=== PATIENT | male | born 1970 | race Caucasian/White ===

== ENCOUNTER 2019-06-23 15:13 | Emergency (ER) | payer SELFPAY ==
[2019-06-23 15:15] VITALS: BP 171/112; PULSE 72; RESP 18; TEMP 36.6; O2SAT 99; BMI 42.4
--- NOTE | 2019-06-23 15:32 | CT_ITS ---
STUDY: CT ABDOMEN AND PELVIS WITHOUT CONTRAST REASON FOR EXAM: Male, 48 years old. RIGHT FLANK PAIN, HEMATURIA RADIATION DOSAGE (If Supplied By Facility): CTDIvol = ( 23.51 ) mGy, DLP = ( 1245.39 ) mGycm TECHNIQUE: Transaxial images were obtained from the dome of the diaphragm to the symphysis pubis without oral contrast, and without intravenous contrast. Sagittal and coronal images were reconstructed. Individualized dose optimization techniques were used for this CT. COMPARISON: None. FINDINGS: The visualized lung bases are unremarkable. The visualized portions of the heart are within normal limits. There is decreased attenuation of the liver consistent with steatosis. Normal gallbladder and extrahepatic biliary system. Normal spleen. Normal pancreas. Normal bilateral adrenal glands. Right obstructive uropathy due to 2.9 MM ureteral stone at the level L3-4, with mild right hydroureteronephrosis and mild right perinephric infiltration. Normal left kidney. Normal visualized stomach. Normal small intestine. Normal colon. The appendix is visualized and appears normal. Normal abdominal aorta. Normal inferior vena cava. Normal retroperitoneum. Normal urinary bladder. Normal abdominal wall. There are diffuse degenerative changes of the visualized lumbar spine. CT/Abdomen/Pelvis without Cont IMPRESSION: Right obstructive uropathy due to 2.9 MM ureteral stone at the level L3-4, with mild right hydroureteronephrosis and mild right perinephric infiltration. The appendix is normal. Diffuse fatty change of liver parenchyma. Electronically Signed: Santino Kirkland MD at 16:35 EST Tel [phone], Service support ,
--- NOTE | 2019-06-23 15:42 | ED.VISSUMM ---
- ER Visit Summary Date of Service: 06/23/19 Chief Complaint: [Flank pain] History of Present Illness: The patient is a 48 M [presents the emergency department complaint of flank pain that started approximately noon today. Pain came on rather suddenly. Patient's had nausea and vomiting with it. Patient was seen in urgent care and referred to the ER. Patient states that he is had some blood in his urine as well. He denies any fever. Patient has never had pain like this before. He has no history of kidney stones. Patient has no medical history.] Physical Examination: [HEENT-PERRLA, EOMI. Cranial nerves II through XII grossly intact. TMs clear. Mucous membranes moist. No adenopathy. Cardiovascular-regular rate and rhythm without murmur or ectopy Lungs-clear to auscultation, chest wall stable without crepitus or subcu emphysema Abdomen-normoactive bowel sounds, soft. Patient has tenderness over the right lower quadrant. Patient has CVA tenderness on the right. There is no rebound, rigidity, or perineal signs. Extremities-intact ?4, normal range of motion, normal pulses, atraumatic] Test Results: [CBC with it was significant for a white count of 14.3, hemoglobin 15, hematocrit 45, platelet 238. Chemistries unremarkable. CT scan of the flank shows a 2.9 mm stone at the right L3-4 level in the right ureter with mild hydroureter and hydronephrosis. Urinalysis is pending.] Emergency Department Course and Treatment: [Patient was medicated with Dilaudid, Toradol, and Zofran and his pain resolved] Treatment Plan: [Patient will be referred to urology for follow-up. Patient will be given urine strainers as well as a prescription for Naprosyn and [employer] and Zofran.] Disposition: [Discharged home in stable condition.] Impression: Right-sided kidney stone with colic [] This note was generated with [employer] dictation software. It may contain incorrect words, spelling, and punctuation that were not noted in review of the chart prior to signing ED Disposition - Plan for ED Patient: Referrals: Brien Maldonado MD [Primary Care Provider] -
[2019-06-23] MEDS: HYDROmorphone 1 MG/ML Syringe IV (15:50)
[2019-06-23] MEDS: 0.9% Normal Saline 1,000 ML 150 ML IV (15:50)
[2019-06-23] MEDS: Ketorolac 30 MG/ML Syringe IV (15:50)
[2019-06-23] MEDS: Ondansetron 4 MG/2 ML Vial IV (15:50)
[2019-06-23 16:09] VITALS: BP 152/81; PULSE 18; RESP 16; O2SAT 92
[2019-06-23 16:09] LABS: Absolute Lymphocyte Count 1.29 X10^3/uL (0.83-4.51); Absolute Neutrophil Count 12.2 X10^3/uL (2.0-7.7); Basophil# 0.03 X10^3/uL; Basophil% 0.2 % (0-1); Eosinophil# 0.03 X10^3/uL; Eosinophils% 0.2 % (0-5); Hematocrit 44.6 % (40-54); Hemoglobin 15.1 g/dL (13.0-16.5); Lymphocyte # 1.29 X10^3/ul (4.0); Mean Corp Hgb Conc 33.9 g/dL (32-36); Mean Corpuscular Volume 85.6 fL (80-94); Mean Platelet Vol. 9.5 fl (6.2-12.0); Monocyte# 0.72 X10^3/uL; NRBC Flagged by Analyzer 0 % (0-5); Neutrophil % 85.3 % (47-70); Platelet Count 238 K/mm3 (150-450); RBC Distribution Width CV 12.8 % (11.6-14.6); RBC Distribution Width SD 39.9 fl (35.1-43.9); Red Blood Count 5.21 M/mm3 (4.6-6.2); White Blood Count 14.3 K/mm3 (4.4-11.0)
[2019-06-23 16:21] LABS: Anion Gap 7 (5-15); BUN 18 mg/dL (7-18); BUN/Creat Ratio 14.6 RATIO (10-20); Calcium,Total 9.2 mg/dL (8.5-10.1); Chloride 108 mmol/L (98-107); Creatinine, Serum 1.23 mg/dL (0.70-1.30); EST Glomerular Filtration Rate 66 mL/min (>60); Est Glom Filt Rate - Afr Amer 80 mL/min (>60); Estimated Creatinine Clearance 70.28 ml/min; Glucose 109 mg/dL (74-106); Sodium Level 142 mmol/L (136-145)
--- NOTE | 2019-06-23 16:46 | DCINST.ED_ITS ---
ED Disposition - Plan for ED Patient: Instructions: KIDNEY STONE w/ Colic Prescriptions: Naproxen [Naprosyn] 500 mg PO BID PRN #20 tab Prescription Printed Hydrocodone Bitart/Apap 5-325 [[place] 5MG-325MG] 1 tab PO Q4H PRN PRN 2 Days #15 tab PRN Reason: Pain Prescription Printed Ondansetron [Zofran Odt] 4 mg PO Q8H PRN PRN #10 tab PRN Reason: Nausea Prescription Printed Referrals: Brien Maldonado MD [Primary Care Provider] - Carlos Fatima MD [STAFF PHYSICIAN] - 3-5 Days
[2019-06-23 16:52] LABS: Bacteria 0 SEEN /hpf (None Seen); Mucous, Urine 0 SEEN /hpf (<or=2+); Squamous Epithelial Cells - UA 0 SEEN /hpf (0-5); White Blood Cells 0 SEEN /hpf (0-5)
[2019-06-23 16:56] LABS: Color, Urine Yellow (Yellow); Glucose, Dipstick Normal (Normal); Ketone-Dipstick Negative (Negative); Leukocyte Esterase-Dipstick Negative /ul (Negative); Nitrite-Dipstick Negative (Negative); Occult Blood-Urine 250 /ul (Negative); Protein-Dipstick 15 mg/dl (Negative); Specific Gravity, Urine 1.015 (1.002-1.030); Urine Bilirubin Dipstick Negative (Negative); Urine Clarity Cloudy (Clear); Urine Urobilinogen Normal (Normal)
[2019-06-23 17:53] VITALS: BP 140/90; RESP 16
[2019-06-23 17:53] LABS: Red Blood Cells-Urine 25-50 SEEN /hpf (0-5)
== END 2019-06-23 18:06 | disposition home or self-care (01) ==
PROVIDERS: Emergency Provider Emergency Medicine; Family Provider Family Medicine; PCP Family Medicine
DX: N13.2 Hydronephrosis with renal and ureteral calculous obstruction (principal)
CPT/HCPCS: 74176; 80048; 81001; 85025; 96361; 96374; 96375; 99284; J7030; A4216; J2405

== ENCOUNTER → 2020-04-22 09:00 | Outpatient (CLI) | payer BC, SELFPAY ==
[2020-04-21 11:31] VITALS: BMI 45.8
== END ==
PROVIDERS: PCP Family Medicine; Referring Provider Physician Assistant; Visit Provider Physician Assistant
DX: Z20.828 Contact with and (suspected) exposure to other viral communicable diseases (principal)
CPT/HCPCS: 87635; C9803; U0003

== ENCOUNTER → 2020-09-24 08:17 | Outpatient (CLI) | payer OTHER, SELFPAY ==
[2020-09-23 09:29] VITALS: BMI 48.6
[2020-09-24 12:00] LABS: Absolute Neutrophil Count 6.8 X10^3/uL (2.0-7.7); Basophil# 0.04 X10^3/uL; Basophil% 0.4 % (0-1); Eosinophil# 0.17 X10^3/uL; Eosinophils% 1.8 % (0-5); Hematocrit 45.6 % (40-54); Hemoglobin 15.5 g/dL (13.0-16.5); Lymphocyte % 18.9 % (19-41); Mean Corpuscular Hgb 29.1 pg (27.0-32.0); Mean Corpuscular Volume 85.7 fL (80-94); Mean Platelet Vol. 9.7 fl (6.2-12.0); Monocyte# 0.65 X10^3/uL; Monocyte% 6.8 % (0-10); NRBC Flagged by Analyzer 0 % (0-5); Neutrophil # 6.82 X10^3/uL (2.7-7.7); Neutrophil % 71.8 % (47-70); Platelet Count 267 K/mm3 (150-450); RBC Distribution Width CV 12.6 % (11.6-14.6); RBC Distribution Width SD 39.2 fl (35.1-43.9); Red Blood Count 5.32 M/mm3 (4.6-6.2); White Blood Count 9.5 K/mm3 (4.4-11.0)
[2020-09-24 12:16] LABS: Vitamin D,25 Hydroxy 10.7 ng/mL
[2020-09-24 12:22] LABS: ALB/GLOB Ratio 1.2 RATIO (0.9-2.4); AST(SGOT) 19 U/L (15-37); Alanine Aminotransfer ALT/SGPT 44 U/L (16-61); Albumin, Serum 4.2 g/dL (3.2-5.0); Alkaline Phosphatase 121 U/L (45-117); Anion Gap 8 (5-15); BUN 17 mg/dL (7-18); Calcium,Total 9.1 mg/dL (8.5-10.1); Chloride 103 mmol/L (98-107); Cholesterol 172 mg/dL (200); Creatinine, Serum 0.94 mg/dL (0.70-1.30); EST Glomerular Filtration Rate 90 mL/min (>60); Est Glom Filt Rate - Afr Amer 108 mL/min (>60); Globulin 3.4 g/dL (2.2-4.2); Glucose 98 mg/dL (74-106); Hemoglobin A1c 5.3 % (3.8-5.6); High Density Lipoprotein 53 mg/dL; PSA,Total - Annual Screen 0.53 ng/mL (0.00-4.00); Protein, Total 7.6 g/dL (6.4-8.2); Sodium Level 139 mmol/L (136-145); Thyroid Stim Hormone (TSH) 1.12 uIU/mL (0.358-3.74); Triglycerides 117 mg/dL; Very Low Density Lipoprotein 23 mg/dL (5-40)
== END ==
PROVIDERS: PCP Internal Medicine; Referring Provider Internal Medicine; Visit Provider Internal Medicine
DX: I10 Essential (primary) hypertension (principal); E66.01 Morbid (severe) obesity due to excess calories; Z68.42 Body mass index [BMI] 45.0-49.9, adult
CPT/HCPCS: 36415; 80053; 80061; 82306; 83036; 84153; 84443; 85025; G0103

== ENCOUNTER → 2020-10-22 11:06 | Outpatient (CLI) | payer OTHER, SELFPAY ==
[2020-09-23 09:29] VITALS: BMI 48.6
== END ==
PROVIDERS: PCP Internal Medicine; Visit Provider Internal Medicine
DX: G47.30 Sleep apnea, unspecified (principal); I10 Essential (primary) hypertension; E66.01 Morbid (severe) obesity due to excess calories; Z68.42 Body mass index [BMI] 45.0-49.9, adult
CPT/HCPCS: 95806

== ENCOUNTER → 2021-06-22 14:31 | Outpatient (CLI) | payer OTHER, SELFPAY | PROVIDERS: PCP Internal Medicine; Referring Provider Physician Assistant; Visit Provider Physician Assistant | DX: Z11.52 Encounter for screening for COVID-19 (principal) | CPT/HCPCS: 87635; U0005; U0003 ==

== ENCOUNTER → 2021-12-09 | Outpatient (CLI) | payer OTHER, SELFPAY ==
--- NOTE | 2021-12-09 14:10 | CT_ITS ---
EXAM: CT MAXILLOFACIAL SINUSES WITHOUT INTRAVENOUS CONTRAST CLINICAL INDICATION: CHRONIC SINUSITIS TECHNIQUE: Helically acquired images were obtained of the maxillofacial sinuses without intravenous contrast. This CT exam was performed using one or more of the following dose reduction techniques: automated exposure control, adjustment of the mA and/or kV according to patient size, and/or use of iterative reconstruction technique. This report was created using [employer] report generation technology. RADIATION DOSE: CTDIvol = 33.06 mGy, DLP = 829.72 mGy-cm COMPARISON: None. FINDINGS: MAXILLARY SINUSES: Right maxillary sinus disease. Ostiomeatal complexes are normally formed. SPHENOID SINUSES: Clear. FRONTAL SINUSES: Clear. ETHMOID AIR CELLS: Clear. NASAL CAVITY/SEPTUM: Nasal septum is midline. Nasal turbinates are unremarkable. BONES/JOINTS: Degenerative changes of the mandibular condyles. ORBITS: Unremarkable. DENTAL: Unremarkable as visualized. No periodontal osseous erosion. CT/Sinus/Facial Bone IMPRESSION: 1. Right maxillary sinus disease. 2. Degenerative changes of the mandibular condyles. Electronically Signed: Enoc Brambila MD at 14:43 EDT ,
== END | disposition home or self-care (01) ==
LOC: CT 14:06
PROVIDERS: PCP Internal Medicine; Referring Provider Otolaryngology; Visit Provider Otolaryngology
DX: J32.8 Other chronic sinusitis (principal); J33.9 Nasal polyp, unspecified
CPT/HCPCS: 70486

== ENCOUNTER → 2023-02-07 | Outpatient (CLI) | payer MEDICAID, SELFPAY ==
[2023-02-07 12:31] LABS: Basophil# 0.02 X10^3/uL; Basophil% 0.3 % (0-1); Eosinophil# 0.22 X10^3/uL; Eosinophils% 2.9 % (0-5); Hematocrit 43.7 % (40-54); Hemoglobin 14.6 g/dL (13.0-16.5); Lymphocyte % 22.5 % (19-41); Mean Corp Hgb Conc 33.4 g/dL (32-36); Mean Corpuscular Hgb 29.1 pg (27.0-32.0); Mean Corpuscular Volume 87.2 fL (80-94); Monocyte# 0.61 X10^3/uL; Monocyte% 8.1 % (0-10); NRBC Flagged by Analyzer 0 % (0-5); Neutrophil # 4.96 X10^3/uL (2.7-7.7); Neutrophil % 65.8 % (47-70); Platelet Count 243 K/mm3 (150-450); RBC Distribution Width CV 12.6 % (11.6-14.6); RBC Distribution Width SD 40.2 fl (35.1-43.9); Red Blood Count 5.01 M/mm3 (4.6-6.2); White Blood Count 7.5 K/mm3 (4.4-11.0)
[2023-02-07 12:51] LABS: Vitamin D,25 Hydroxy 14.5 ng/mL
[2023-02-07 12:54] LABS: Hemoglobin A1c 5.5 % (3.8-5.6)
[2023-02-07 13:04] LABS: ALB/GLOB Ratio 1.1 RATIO (0.9-2.4); AST(SGOT) 19 U/L (15-37); Alanine Aminotransfer ALT/SGPT 40 U/L (16-61); Albumin, Serum 3.6 g/dL (3.2-5.0); Alkaline Phosphatase 112 U/L (45-117); Anion Gap 6 (5-15); BUN 14 mg/dL (7-18); BUN/Creat Ratio 14.8 RATIO (10-20); Calcium,Total 8.9 mg/dL (8.5-10.1); Chloride 107 mmol/L (98-107); Cholesterol 152 mg/dL (200); Creatinine, Serum 0.94 mg/dL (0.70-1.30); EST Glomerular Filtration Rate 89 mL/min (>60); Est Glom Filt Rate - Afr Amer 107 mL/min (>60); Globulin 3.4 g/dL (2.2-4.2); Glucose 109 mg/dL (74-106); High Density Lipoprotein 44 mg/dL; PSA,Total- Diagnostic 0.68 ng/mL (0.0-4.0); Potassium 4.1 mmol/L (3.5-5.1); Sodium Level 139 mmol/L (136-145); Thyroid Stim Hormone (TSH) 1.06 uIU/mL (0.358-3.74); Triglycerides 102 mg/dL; Very Low Density Lipoprotein 20 mg/dL (5-40)
== END | disposition home or self-care (01) ==
LOC: BIMLAB 09:01
PROVIDERS: PCP Internal Medicine; Referring Provider Internal Medicine; Visit Provider Internal Medicine
DX: I10 Essential (primary) hypertension (principal); Z68.42 Body mass index [BMI] 45.0-49.9, adult; G47.33 Obstructive sleep apnea (adult) (pediatric); E55.9 Vitamin D deficiency, unspecified; Z12.5 Encounter for screening for malignant neoplasm of prostate
CPT/HCPCS: 36415; 80053; 80061; 82306; 83036; 84153; 84443; 85025

== ENCOUNTER → 2024-11-28 | Outpatient (CLI) | payer OTHER, SELFPAY ==
[2024-11-28 12:58] LABS: Absolute Lymphocyte Count 1.88 X10^3/uL (0.83-4.51); Absolute Neutrophil Count 5.5 X10^3/uL (2.0-7.7); Basophil# 0.03 X10^3/uL; Basophil% 0.4 % (0-1); Eosinophils% 2.4 % (0-5); Hematocrit 42.4 % (40-54); Hemoglobin 14.6 g/dL (13.0-16.5); Lymphocyte # 1.88 X10^3/ul (0.83-4.51); Lymphocyte % 22.7 % (19-41); Mean Corp Hgb Conc 34.4 g/dL (32-36); Mean Corpuscular Hgb 29.9 pg (27.0-32.0); Mean Corpuscular Volume 86.9 fL (80-94); Monocyte% 8.4 % (0-10); NRBC Flagged by Analyzer 0 % (0-5); Neutrophil # 5.46 X10^3/uL (2.7-7.7); Neutrophil % 65.7 % (47-70); Platelet Count 243 K/mm3 (150-450); RBC Distribution Width CV 13.2 % (11.6-14.6); RBC Distribution Width SD 41.7 fl (35.1-43.9); Red Blood Count 4.88 M/mm3 (4.6-6.2); White Blood Count 8.3 K/mm3 (4.4-11.0)
[2024-11-28 13:15] LABS: Hemoglobin A1c 5.6 % (<=5.6)
[2024-11-28 13:32] LABS: ALB/GLOB Ratio 1.7 RATIO (0.9-2.4); AST(SGOT) 20 U/L (<=37); Alanine Aminotransfer ALT/SGPT 27 U/L (<=46); Albumin, Serum 4.4 g/dL (3.5-5.0); Alkaline Phosphatase 111 U/L (40-129); Anion Gap 11 (5-15); BUN 17 mg/dL (4-19); Calcium,Total 9.3 mg/dL (7.6-11.0); Carbon Dioxide 23.5 mmol/L (21.0-32.0); Chloride 104 mmol/L (98-108); Cholesterol 161 mg/dL (<=200); Creatinine, Serum 0.95 mg/dL (0.70-1.20); EST Glomerular Filtration Rate 95 (>60); Globulin 2.5 g/dL (2.2-4.2); Glucose 102 mg/dL (70-99); High Density Lipoprotein 42 mg/dL; Low Density Lipoprotein Calc. 95 mg/dL; PSA,Total - Annual Screen 0.85 ng/mL (0.02-4.00); Potassium 4.2 mmol/L (3.3-5.1); Protein, Total 6.9 g/dL (5.9-8.4); Sodium Level 138 mmol/L (133-145); Total Bilirubin 0.43 mg/dL (0.00-1.30); Triglycerides 121 mg/dL; Very Low Density Lipoprotein 24 mg/dL (5-40); cholesterol:hdl ratio screen 3.82
== END | disposition home or self-care (01) ==
LOC: BIMLAB 09:08
PROVIDERS: PCP Internal Medicine; Referring Provider Internal Medicine; Visit Provider Internal Medicine
DX: Z00.00 Encounter for general adult medical examination without abnormal findings (principal); I10 Essential (primary) hypertension; G47.33 Obstructive sleep apnea (adult) (pediatric); E55.9 Vitamin D deficiency, unspecified; Z13.220 Encounter for screening for lipoid disorders; Z12.5 Encounter for screening for malignant neoplasm of prostate; R73.9 Hyperglycemia, unspecified
CPT/HCPCS: 36415; 80053; 80061; 82306; 83036; 84153; 84443; 85025; G0103

== ENCOUNTER 2025-01-13 07:59 | Day surgery (SDC) | payer OTHER, SELFPAY ==
[2025-01-13] VITALS (7 sets, daily range): BP systolic 113–171; BP diastolic 84–97; PULSE 60–71; RESP 16–18; TEMP 36.2–37; O2SAT 96–100; BMI 66.4
--- OUTSIDE RECORDS SUMMARY | 2025-01-13 08:23 | XMS RPT_ITS | CCD ---
Author Organization [facility] Care Team Providers Care Grinder [employer] Name Role Phone Myrna Kimble Unavailable UnavailDr. Shaila Benitez Primary Care Provider Dr. Shaila Mcnair Attending Provider Dr. Shaila Mcnair Referring Provider [phone] TAYE Galvan Attending Provider [phone] Unavailable Primary Care Provider Dr. Shaila Sequeira MD Primary Care Provider Dr. Shaila Mcnair MD Attending Provider Dr. Shaila Mcnair MD Referring Provider Shaila Mcnair Attending Unavailable Shaila Mcnair Primary Care Unavailable Shaila Mcnair Primary Care Unavailable Shaila Mcnair Referring Unavailable Shaila Mcnair Attending Unavailable Shaila Mcnair Primary Care Unavailable Elkin Starks Attending Unavailable Allergies Allergy Classification Reported Allergen(s) Allergy Type Date of Onset Reaction(s) Facility (3 sources) Lisinopril; Translations: [LISINOPRIL] Drug Allergy 7 Cough [facility] Work Phone: (3 sources) Seasonal allergy; Translations: [SEASONAL ALLERGIES] Allergy to substance 4 Other: See Comments [facility] (1 source) Seasonal Allergies: Uncoded; Translations: [Seasonal Allergies: Uncoded] Propensity to adverse reactions (disorder) 5 [facility] Repository Medications Current Medications Medication Drug Class(es) Dates Sig (Normalized) Sig (Original) benzonatate 100 mg oral capsule (3 sources) Non-narcotic Antitussive Start: 10-21-2021 take 200 mg by mouth three times daily Benzonatate Active 200 MG PO THREE TIMES A DAY October 21, 2021 2:23pm Start: 10-21-2021 End: 11-27-2024 take 2 capsules by mouth three times daily as needed for cough Benzonatate 100 mg capsule Discontinued 200 mg PO THREE TIMES A DAY as needed for cough October 21, 2021 12:00am November 27, 2024 10:10am cetirizine hydrochloride 10 mg oral tablet (2 sources) Histamine-1 Receptor Antagonist Start: 11-27-2024 take 1 tablet by mouth once daily as needed Cetirizine (Allergy Relief (Cetirizine)) 10 mg tablet Active 10 mg PO daily as needed November 27, 2024 12:00am Completed/Discontinued Medications Medication Drug Class(es) Dates Sig (Normalized) Sig (Original) acetaminophen 325 mg / HYDROcodone bitartrate 5 mg oral tablet (3 sources) Opioid Agonist Start: 06-23-2019 End: 06-25-2019 take 1 tablet by mouth every four hours as needed Hydrocodone-Acetami nophen Discontinued 1 TABLET PO EVERY 4 HOURS NEEDED 15 June 23, 2019 5:46pm June 25, 2019 1:08am Start: 06-23-2019 End: 06-25-2019 Hydrocodone-Acetaminophen 1 TABLET tablet Discontinued 1 {tbl} PO EVERY 4 HOURS NEEDED as needed for Pain 15 June 23, 2019 June 24, 2019 1:00am June 25, 2019 1:08am amLODIPine 10 mg oral tablet (15 sources) Dihydropyridine Calcium Channel Elinor Start: 09-23-2020 End: 11-27-2024 take 1 tablet by mouth once daily Amlodipine 10 mg tablet Discontinued 10 mg PO DAILY October 15, 2023 9:56am November 27, 2024 11:29am amoxicillin 500 mg oral capsule (2 sources) Penicillin-class Antibacterial Start: 08-12-2023 End: 08-17-2023 take 1 capsule by mouth twice daily Amoxicillin 500 mg capsule Discontinued 500 mg PO TWICE A DAY 10 August 12, 2023 1:00am August 16, 2023 1:00am August 17, 2023 1:04am amoxicillin 875 mg / clavulanate 125 mg oral tablet (5 sources) Penicillin-class Antibacterial Start: 09-13-2022 End: 10-11-2022 Amoxicillin-Pot Clavulanate 875-125 mg tablet Discontinued 1 {tbl} PO TWICE A DAY September 13, 2022 12:00am October 11, 2022 1:04pm Start: 10-21-2021 End: 10-31-2021 take 1 tablet by mouth every twelve hours Amoxicillin-Pot Clavulanate Discontinued 1 TABLET PO Q12H 20 04October 21, 2021 2:23pm October 31, 2021 12:03am Start: 10-21-2021 End: 10-31-2021 Amoxicillin-Pot Clavulanate 875-125 mg tablet Discontinued 1 {tbl} PO Q12H 20 04October 21, 2021 12:00am October 30, 2021 12:00am October 31, 2021 12:03am cholecalciferol 0.025 mg oral capsule (2 sources) Vitamin D Start: 02-07-2023 End: 11-27-2024 take 1 capsule by mouth once daily Cholecalciferol (Vitamin D3) 25 mcg (1,000 unit) capsule Discontinued 25 ug PO DAILY February 07, 2023 12:00am November 27, 2024 10:11am fluticasone propionate 0.05 mg/actuat metered dose nasal spray (3 sources) Corticosteroid Start: 02-24-2021 End: 07-25-2021 take 1 spray(s) nasal route once daily Fluticasone Propionate Discontinued 1 SPRAY INTRANASAL DAILY February 24, 2021 8:55am July 25, 2021 10:59am administer into each nostril Start: 02-24-2021 End: 07-25-2021 Fluticasone Propionate 50 mc g/actuation spray,suspension Discontinued 1 NMA INTRANASAL DAILY February 24, 2021 12:00am July 25, 2021 10:59am administer into each nostril ibuprofen 200 mg oral capsule (3 sources) Nonsteroidal Anti-inflammatory Drug Start: 09-22-2020 End: 07-25-2021 take 1 capsule by mouth every six hours as needed Ibuprofen 200 mg capsule Discontinued 200 mg PO EVERY 6 HOURS as needed September 22, 2020 12:00am July 25, 2021 10:59am losartan potassium 50 mg oral tablet (5 sources) Angiotensin 2 Receptor Elinor Start: 05-27-2018 End: 07-28-2020 take 1 tablet by mouth once daily Losartan 50 MG tablet Discontinued 50 mg PO DAILY June 23, 2019 1:00am July 28, 2020 1:15pm Comment on above: Take 1 tablet by bettina th once daily. methylPREDNISolone 4 mg oral tablet (3 sources) Corticosteroid Start: 10-11-2022 End: 11-27-2024 take 1 tablet by mouth once Methylprednisolone (Medrol (Terry)) 4 mg tablets,dose pack Discontinued 0 PO per package directions October 11, 2022 12:00am November 27, 2024 10:10am PO PER PKG DIR Start: 10-04-2020 End: 10-04-2020 Depo-Medrol (methylprednisol one acetate) 40 mg/mL suspension for injection Discontinued 40 MG INTRAARTIC ONCE 1 October 04, 2020 9:19am October 04, 2020 9:38am naproxen 500 mg oral tablet (3 sources) Nonsteroidal Anti-inflammatory Drug Start: 06-23-2019 End: 07-28-2020 take 1 tablet by mouth twice daily as needed Naproxen 500 MG tablet Discontinued 500 mg PO TWICE DAILY NEEDED June 23, 2019 1:00am July 28, 2020 1:15pm ondansetron 4 mg disintegrating oral tablet (3 sources) Serotonin-3 Receptor Antagonist Start: 06-23-2019 End: 07-28-2020 take 1 tablet by mouth every eight hours as needed for nausea Ondansetron 4 MG tablet Discontinued 4 mg PO EVERY 8 HOURS NEEDED as needed for Nausea June 23, 2019 1:00am July 28, 2020 1:15pm predniSONE 10 mg oral tablet (2 sources) Start: 08-06-2022 predniSONE (DELTASONE) 10 mg tablet Indications: URI, acute , Sinusitis, unspecified chronicity, unspecified location Take 4 tabs daily for 3 days, then 2 tabs daily for 3 days, then 1 tab daily for 3 days with food. 21 tablet 0 08/06/2022 Active Comment on above: Take 4 tabs daily fo r 3 days, then 2 tabs daily for 3 days, then 1 tab daily for 3 days with food. Problems Active Problems Problem Classification Problem Date Documented Da te Episodic/Chronic Acute bronchitis (2 sources) Acute bronchitis; Translations: [Acute bronchitis, unspecified] 09-13-2022 Episodic Essential hypertension (11 sources) Essential hypertension; Translations: [Essential (primary) hypertension] Onset: 01-19-2016 Chronic Nutritional deficiencies (5 sources) Vitamin D deficiency; Translations: [Vitamin D deficiency, unspecified] Onset: 11-27-2024 Chronic Other injuries and conditions due to external causes (1 source) Injury of knee; Translations: [Unspecified injury of left lower leg, initial encounter] Episodic Other injuries and conditions due to external causes (2 sources) Injury of left knee; Translations: [Unspecified injury of left lower leg, initial encounter] 07-25-2021 Episodic Other lower respiratory disease (4 sources) Chronic cough; Translations: [Chronic cough] Episodic Other non-traumatic joint disorders (3 sources) Pain in left knee; Translations: [Left knee pain] 07-25-2021 Episodic Other nutritional; endocrine; and metabolic disorders (7 sources) Body mass index 40+ - severely obese; Translations: [Body mass index (BMI) 45.0-49.9, adult] 11-27-2024 Chronic Other nutritional; endocrine; and metabolic disorders (1 source) Body mass index (BMI) 45.0-49.9, adult; Translations: [Body Mass Index 45.0-49.9, adult] Chronic Other nutritional; endocrine; and metabolic disorders (2 sources) Morbid obesity; Translations: [Morbid (severe) obesity due to excess calories] Onset: 01-19-2016 01-19-2016 Chronic Other nutritional; endocrine; and metabolic disorders (1 source) Body mass index (BMI) 50.0-59.9, adult; Translations: [Body mass index [BMI] 50.0-59.9, adult] Onset: 11-27-2024 Chronic Other screening for suspected conditions (not mental disorders or infectious disease) (7 sources) Patient encounter status; Translations: [Encounter for screening for malignant neoplasm of prostate] Onset: 11-27-2024 02-07-2023 Episodic Other skin disorders (6 sources) Skin lesion; Translations: [Disorder of the skin and subcutaneous tissue, unspecified] Episodic Other skin disorders (1 source) Disorder of the skin and subcutaneous tissue, unspecified; Translations: [Disorder of the skin and subcutaneous tissue, unspecified] Onset: 11-27-2024 Episodic Other upper respiratory disease (2 sources) Seasonal allergy; Translations: [Other seasonal allergic rhinitis] Onset: 05-27-2014 05-27-2014 Chronic Other upper respiratory infections (1 source) Sinusitis; Translations: [Chronic sinusitis, unspecified] Chronic Other upper respiratory infections (9 sources) Acute sinusitis; Translations: [Acute sinusitis, unspecified] Episodic Residual codes; unclassified (5 sources) Obstructive sleep apnea syndrome; Translations: [Obstructive sleep apnea (adult) (pediatric)] 11-18-2020 Chronic Residual codes; unclassified (5 sources) Sleep apnea; Translations: [Sleep apnea, unspecified] 11-25-2020 Chronic Residual codes; unclassified (2 sources) Obstructive sleep apnea (adult) (pediatric); Translations: [Obstructive sleep apnea (adult)(pediatric)] Onset: 11-27-2024 Chronic Residual codes; unclassified (2 sources) Sleep apnea, unspecified; Translations: [Unspecified sleep apnea] Onset: 11-27-2024 Chronic Spondylosis; intervertebral disc disorders; other back problems (5 sources) Cervico-occipital neuralgia; Translations: [Occipital neuralgia] Onset: 11-27-2024 11-27-2024 Episodic Superficial injury; contusion (3 sources) Contusion of knee; Translations: [Contusion of left knee, initial encounter] 07-25-2021 Episodic Unclassified (1 source) Unknown / UNK(Unknown) Onset: 07-06-2018 Unclassified (4 sources) Encounter for screening for malignant neoplasm of colon; Translations: [Z12.11 - Encounter for screening for malignant neoplasm of colon] Unclassified (2 sources) L98.9 - Disorder of the skin and subcutaneous tissue, unspecified Viral infection (3 sources) Disease caused by 2019-nCoV; Translations: [COVID-19] 07-28-2020 Episodic Past or Other Problems Problem Classification Problem Date Documented Da te Episodic/Chronic Unclassified (1 source) LEFT AND INJURY/SWELLING Onset: 07-06-2018 Unclassified (2 sources) h/o nose surgery 01-30-2022 Results Test Name Value Interpretation Reference Range Facility Absolute lymphocyte countOrd ered By: Shaila Mcnair on 11-28-2024 Lymphocytes Auto (Unsp spec) [#/Vol] 1.88 10*3/uL 0.83-4.51 [facility] [place] Absolute neutrophil countOrd ered By: Shaila Mcnair on 11-28-2024 Neutrophils (Bld) [#/Vol] 5.5 10*3/uL 2.0-7.7 [facility] Anion gap in Serum or Plasma Ordered By: Shaila Mcnair on 11-28-2024 Anion gap [Moles/Vol] 11 mmol/L 5- [facility] Automated lymphocyte count a s percentage of total leukocytesOrdered By: Shaila Mcnair on 11-28-2024 Lymphocytes/100 WBC Auto (Unsp spec) 22.7 % - [facility] BUN/creatinine ratioOrdered By: Shaila Mcnair on 11-28-2024 Urea nitrogen/Creatinine [Mass ratio] 18.0 mg/mg 10- [facility] Basophil percentageOrdered B y: Shaila Mcnair on 11-28-2024 Basophils/100 WBC (Bld) 0.4 % 0-1 [facility] Bilirubin, totalOrdered By: Shaila Mcnair on 11-28-2024 Bilirubin [Mass/Vol] 0.43 mg/dL 0.00-1.30 [facility] CBC W/Diff, Automatedon 11-01 Absolute Lymph 1.88 X10 3/uL Normal 0.83-4.51 [facility] Comment on above: Performed By: #### L [id number], [id number], L501.9985, L506.1001, L500.4050, L100.0100, L500.4100 #### [facility] Laboratory [address] [place], [address] Absolute Neut 5.5 X10 3/uL Normal 2.0-7.7 [facility] Comment on above: Performed By: #### L [id number], [id number], L501.9985, L506.1001, L500.4050, L100.0100, L500.4100 #### [facility] Laboratory [address] [place], [address] Basophils/100 WBC (Bld) 0.4 % Normal 0-1 [facility] Comment on above: Performed By: #### L [id number], [id number], L501.9985, L506.1001, L500.4050, L100.0100, L500.4100 #### [facility] Laboratory [address] [place], [address] Eosinophils/100 WBC (Bld) 2.4 % Normal 0-5 [facility] Comment on above: Performed By: #### L [id number], [id number], L501.9985, L506.1001, L500.4050, L100.0100, L500.4100 #### [facility] Laboratory [address] [place], [address] Erythrocyte distribution width (RBC) [Ratio] 13.2 % Normal 11.6-14.6 [facility] Comment on above: Performed By: #### L [id number], [id number], L501.9985, L506.1001, L500.4050, L100.0100, L500.4100 #### [facility] Laboratory [address] [place], [address] Hematocrit (Bld) [Volume fraction] 42.4 % Normal 40-54 [facility] Comment on above: Performed By: #### L [id number], [id number], L501.9985, L506.1001, L500.4050, L100.0100, L500.4100 #### [facility] Laboratory [address] [place], [address] Hemoglobin (Bld) [Mass/Vol] 14.6 g/dL Normal 13.0-16.5 [facility] Comment on above: Performed By: #### L [id number], [id number], L501.9985, L506.1001, L500.4050, L100.0100, L500.4100 #### [facility] Laboratory [address] [place], [address] IG% 0.400 Normal 0.0-0.9 [facility] Comment on above: Result Comment: IG% - Immature Granulocytes (promyelocytes, myelocytes and metamyelocytes) > 1% indicates that a LEFT SHIFT is Present. Performed By: #### L [id number], [id number], L501.9985, L506.1001, L500.4050, L100.0100, L500.4100 #### [facility] Laboratory [address] [place], [address] Lymphocytes/100 WBC (Bld) 22.7 % Normal 19-41 [facility] Comment on above: Performed By: #### L [id number], [id number], L501.9985, L506.1001, L500.4050, L100.0100, L500.4100 #### [facility] Laboratory [address] [place], [address] MCH (RBC) [Entitic mass] 29.9 pg Normal 27.0-32.0 [facility] Comment on above: Performed By: #### L [id number], [id number], L501.9985, L506.1001, L500.4050, L100.0100, L500.4100 #### [facility] Laboratory [address] [place], [address] MCHC (RBC) [Mass/Vol] 34.4 g/dL Normal 32-[address] [facility] Comment on above: Performed By: #### L [id number], [id number], L501.9985, L506.1001, L500.4050, L100.0100, L500.4100 #### [facility] Laboratory [address] [place], [address] MCV (RBC) [Entitic vol] 86.9 fL Normal 80-94 [facility] Comment on above: Performed By: #### L [id number], [id number], L501.9985, L506.1001, L500.4050, L100.0100, L500.4100 #### [facility] Laboratory [address] [place], [address] Monocytes/100 WBC (Bld) 8.4 % Normal 0-10 [facility] Comment on above: Performed By: #### L [id number], [id number], L501.9985, L506.1001, L500.4050, L100.0100, L500.4100 #### [facility] Laboratory [address] [place], [address] Neutrophils/100 WBC (Bld) 65.7 % Normal 47-70 [facility] Comment on above: Performed By: #### L [id number], [id number], L501.9985, L506.1001, L500.4050, L100.0100, L500.4100 #### [facility] Laboratory [address] [place], [address] Nucleated RBC (Bld) [#/Vol] 0 10*3/uL Normal 0-5 [facility] Comment on above: Performed By: #### L [id number], [id number], L501.9985, L506.1001, L500.4050, L100.0100, L500.4100 #### [facility] Laboratory [address] [place], [address] Platelet mean volume (Bld) [Entitic vol] 10.0 fL Normal 6.2-12.0 [facility] Comment on above: Performed By: #### L [id number], [id number], L501.9985, L506.1001, L500.4050, L100.0100, L500.4100 #### [facility] Laboratory [address] [place], [address] Platelets (Bld) [#/Vol] 243 10*3/uL Normal 150-450 [facility] Comment on above: Performed By: #### L [id number], [id number], L501.9985, L506.1001, L500.4050, L100.0100, L500.4100 #### [facility] Laboratory [address] [place], [address] RBC (Bld) [#/Vol] 4.88 10*6/uL Normal 4.6-6.2 [facility] Comment on above: Performed By: #### L [id number], [id number], L501.9985, L506.1001, L500.4050, L100.0100, L500.4100 #### [facility] Laboratory [address] [place], [address] RDW SD 41.7 fl Normal 35.1-43.9 [facility] Comment on above: Performed By: #### L [id number], [id number], L501.9985, L506.1001, L500.4050, L100.0100, L500.4100 #### [facility] Laboratory [address] [place], [address] WBC (Bld) [#/Vol] 8.3 10*3/uL Normal 4.4-11.0 [facility] Comment on above: Performed By: #### L [id number], [id number], L501.9985, L506.1001, L500.4050, L100.0100, L500.4100 #### [facility] Laboratory [address] [place], [address] Calculated very low density lipoprotein (VLDL) cholesterol measurementOrdered By: Shaila Mcnair on 11-28-2024 Calculated very low density lipoprotein (VLDL) cholesterol measurement 24 mg/dL 5-40 [facility] Carbon dioxide, total [Moles /volume] in Central venous bloodOrdered By: Shaila Mcnair on 11-28-2024 CO2 [Moles/Vol] 23.5 mmol/L 21.0-32.0 [facility] Chloride assayOrdered By: Sonam Mcnair on 11-28-2024 Chloride [Moles/Vol] 104 mmol/L 98-108 [facility] Comprehensive Metabolic Prof ilon 11-28-2024 Albumin [Mass/Vol] 4.4 g/dL Normal 3.5-5.0 [facility] Comment on above: Performed By: #### L [id number], [id number], L501.9985, L506.1001, L500.4050, L100.0100, L500.4100 #### [facility] Laboratory [address] [place], [address] Albumin/Globulin [Mass ratio] 1.7 {ratio} Normal 0.9-2.4 [facility] Comment on above: Performed By: #### L [id number], [id number], L501.9985, L506.1001, L500.4050, L100.0100, L500.4100 #### [facility] Laboratory [address] [place], [address] ALK PHOS 111 U/L Normal 40-129 [facility] Comment on above: Performed By: #### L [id number], [id number], L501.9985, L506.1001, L500.4050, L100.0100, L500.4100 #### [facility] Laboratory [address] [place], [address] ALT [Catalytic activity/Vol] 27 U/L Normal <=46 [facility] Comment on above: Performed By: #### L [id number], [id number], L501.9985, L506.1001, L500.4050, L100.0100, L500.4100 #### [facility] Laboratory [address] [place], [address] AST [Catalytic activity/Vol] 20 U/L Normal <=37 [facility] Comment on above: Performed By: #### L [id number], [id number], L501.9985, L506.1001, L500.4050, L100.0100, L500.4100 #### [facility] Laboratory [address] [place], [address] Bilirubin [Mass/Vol] 0.43 mg/dL Normal 0.00-1.30 [facility] Comment on above: Performed By: #### L [id number], [id number], L501.9985, L506.1001, L500.4050, L100.0100, L500.4100 #### [facility] [address] [place], [address] BUN/CRE 18.0 RATIO Normal 10-20 [facility] Comment on above: Performed By: #### L [id number], [id number], L501.9985, L506.1001, L500.4050, L100.0100, L500.4100 #### [facility] Laboratory [address] [place], [address] Calcium [Mass/Vol] 9.3 mg/dL Normal 7.6-11.0 [facility] Comment on above: Performed By: #### L [id number], L501.9910, L501.9985, L506.1001, L500.4050, L100.0100, L500.4100 #### [facility] Laboratory [address] [place], [address] Chloride [Moles/Vol] 104 mmol/L Normal 98-108 [facility] Comment on above: Performed By: #### L [id number], [id number], L501.9985, L506.1001, L500.4050, L100.0100, L500.4100 #### [facility] Laboratory [address] [place], [address] CO2 [Moles/Vol] 23.5 mmol/L Normal 21.0-32.0 [facility] Comment on above: Performed By: #### L [id number], [id number], L501.9985, L506.1001, L500.4050, L100.0100, L500.4100 #### [facility] Laboratory [address] [place], [address] Creatinine [Mass/Vol] 0.95 mg/dL Normal 0.70-1.[address] [facility] Comment on above: Performed By: #### L [id number], [id number], L501.9985, L506.1001, L500.4050, L100.0100, L500.4100 #### [facility] Laboratory [address] [place], [address] GAP 11 Normal 5-15 [facility] Comment on above: Performed By: #### L [id number], L501.9910, L501.9985, L506.1001, L500.4050, L100.0100, L500.4100 #### [facility] Laboratory [address] [place], [address] GFR/1.73 sq M.predicted among non-blacks MDRD (S/P/Bld) [Vol rate/Area] 95 mL/min/{1.73_m2} Normal >60 [facility] Comment on above: Result Comment: mL/m in/1.73m2 CKD-EPI Creatinine Equation (2020) Performed By: #### L [id number], L501.9910, L501.9985, L506.1001, L500.4050, L100.0100, L500.4100 #### [facility] [address] [place], [address] Globulin (S) [Mass/Vol] 2.5 g/dL Normal 2.2-4.2 [facility] Comment on above: Performed By: #### L 501.9520, L501.9910, L501.9985, L506.1001, L500.4050, L100.0100, L500.4100 #### [facility] [address] [place], [address] Glucose [Mass/Vol] 102 mg/dL High 70-99 [facility] Comment on above: Performed By: #### L 501.9520, L501.9910, L501.9985, L506.1001, L500.4050, L100.0100, L500.4100 #### [facility] [address] [place], [address] Potassium [Moles/Vol] 4.2 mmol/L Normal 3.3-5.[address] [facility] Comment on above: Performed By: #### L 501.9520, L501.9910, L501.9985, L506.1001, L500.4050, L100.0100, L500.4100 #### [facility] [address] [place], [address] Sodium [Moles/Vol] 138 mmol/L Normal 133-145 [facility] Comment on above: Performed By: #### L 501.9520, L501.9910, L501.9985, L506.1001, L500.4050, L100.0100, L500.4100 #### [facility] [address] [place], [address] T PROT 6.9 g/dL Normal 5.9-8.4 [facility] Comment on above: Performed By: #### L 501.9520, L501.9910, L501.9985, L506.1001, L500.4050, L100.0100, L500.4100 #### [facility] [address] [place], [address] Urea nitrogen [Mass/Vol] 17 mg/dL Normal 4-19 [facility] Comment on above: Performed By: #### L 501.9520, L501.9910, L501.9985, L506.1001, L500.4050, L100.0100, L500.4100 #### [facility] [address] [place], [address] Eosinophil percentageOrdered By: Shaila Mcnair on 11-28-2024 Eosinophils/100 WBC (Bld) 2.4 % 0-5 [facility] Erythrocyte distribution wid th ratioOrdered By: Shaila Mcnair on 11-28-2024 Erythrocyte distribution width (RBC) [Ratio] 13.2 % 11.6-14.6 [facility] Erythrocyte distribution wid th standard deviationOrdered By: Shaila Mcnair on 11-28-2024 Erythrocyte distribution width (RBC) [Ratio] 41.7 fl 35.1-43.9 [facility] Glomerular filtration rate ( GFR) estimation/1.73 sq m using serum, plasma, or whole bOrdered By: Shaila Mcnair on 11-28-2024 GFR/1.73 sq M.predicted among non-blacks MDRD (S/P/Bld) [Vol rate/Area] 95 mL/min/{1.73_m2} >60 [facility] Comment on above: mL/min/1.73m2 CKD-EP I Creatinine Equation (2020) Hematocrit Auto (Bld) [Volum e fraction]Ordered By: Shaila Mcnair on 11-28-2024 Hematocrit (Bld) [Volume fraction] 42.4 % 40-54 [facility] Hemoglobin A1con 11-28-2024 HbA1c (Bld) [Mass fraction] 5.6 % Normal <=5.6 [facility] Comment on above: Result Comment: Norm al < 5.7 % Prediabetic 5.7 - 6.4 % Diabetic >or= 6.5 % Please note range changes. Performed By: #### L 501.9520, L501.9910, L501.9985, L506.1001, L500.4050, L100.0100, L500.4100 #### [facility] [address] [place], [place], [id number] Hemoglobin A1c percentageOrd ered By: Shaila Mcnair on 11-28-2024 HbA1c (Bld) [Mass fraction] 5.6 % <5.7 [facility] Comment on above: Normal < 5.7 % Predi abetic 5.7 - 6.4 % Diabetic >or= 6.5 % Please note range changes. Hemoglobin measurementOrdere d By: Shaila Mcnair on 11-28-2024 Hemoglobin (Bld) [Mass/Vol] 14.6 g/dL 13.0-16.5 [facility] Immature granulocytes/100 WB C Auto (Bld)Ordered By: Shaila Mcnair on 11-28-2024 Immature granulocytes/100 WBC (Bld) 0.400 % 0.0-0.9 [facility] Comment on above: IG% - Immature Granu locytes (promyelocytes, myelocytes and metamyelocytes) > 1% indicates that a LEFT SHIFT is Present. LDL calc ser/plasOrdered By: Shaila Mcnair on 11-28-2024 Cholesterol in LDL [Mass/Vol] 95 mg/dL [facility] Comment on above: Vojnybycym=763-306 m g/dL & Higher Uehx=694 mg/dL or greater Laboratory - Chemistry and C hemistry - challengeOrdered By: Shaila Mcnair on 11-28-2024 AST [Catalytic activity/Vol] 20 U/L <38 [facility] Lipid Profileon 11-28-2024 CHOL:HDL 3.82 Normal [facility] Comment on above: Performed By: #### L 501.9520, L501.9910, L501.9985, L506.1001, L500.4050, L100.0100, L500.4100 #### [facility] [address] [place], [address] Cholesterol [Mass/Vol] 161 mg/dL Normal <=200 [facility] Comment on above: Result Comment: Chol esterol level, Desirable <200 mg/dL Borderline high cholesterol 200-239 mg/dL High cholesterol >=240 mg/dL Recommendations of the NCEP Adult Treatment Panel for the following risk-cutoff thresholds for the [place] population. Performed By: #### L 501.9520, L501.9910, L501.9985, L506.1001, L500.4050, L100.0100, L500.4100 #### [facility] [address] [place], [address] Cholesterol in HDL [Mass/Vol] 42 mg/dL Normal [facility] Comment on above: Result Comment: Em onal Cholesterol Education Program (NCEP) guidelines: <40 mg/dL: Low HDL-cholesterol (major risk factor for CHD) >= 60 mg/dL: High HDL-cholesterol (negative risk factor for CHD) HDL-cholesterol is affected by a number of factors, e.g. smoking, exercise, hormones, sex and age. Performed By: #### L 501.9520, L501.9910, L501.9985, L506.1001, L500.4050, L100.0100, L500.4100 #### [facility] [address] [place], [address] Cholesterol in LDL [Mass/Vol] 95 mg/dL Normal [facility] Comment on above: Result Comment: Bord tyxprg=121-458 mg/dL Higher Qlkf=413 mg/dL or greater Performed By: #### L 501.9520, L501.9910, L501.9985, L506.1001, L500.4050, L100.0100, L500.4100 #### [facility] [address] [place], [address] Cholesterol in VLDL [Mass/Vol] 24 mg/dL Normal 5-40 [facility] Comment on above: Performed By: #### L 501.9520, L501.9910, L501.9985, L506.1001, L500.4050, L100.0100, L500.4100 #### [facility] [address] [place], [place], [id number] Triglyceride [Mass/Vol] 121 mg/dL Normal [facility] Comment on above: Result Comment: The drugs N-Acetylcysteine and Metamizole may falsely depress this assay. Normal range: <150 mg/dL Borderline High: 150-199 mg/dL High: 200-499 mg/dL Very High: >500 mg/dL Performed By: #### L 501.9520, L501.9910, L501.9985, L506.1001, L500.4050, L100.0100, L500.4100 #### [facility] [address] [place], [place], [id number] MCV (mean corpuscular volume ) determinationOrdered By: Shaila Mcnair on 11-28-2024 MCV (RBC) [Entitic vol] 86.9 fL 80-94 [facility] Mean corpuscular hemoglobin (MCH) determinationOrdered By: Shaila Mcnair on 11-28-2024 MCH (RBC) [Entitic mass] 29.9 pg 27.0-32.0 [facility] Mean corpuscular hemoglobin concentration (MCHC) determinationOrdered By: Shaila Mcnair on 11-28-2024 MCHC (RBC) [Mass/Vol] 34.4 g/dL 32-[address] [facility] Mean platelet volume determi nationOrdered By: Shaila Mcnair on 11-28-2024 Platelet mean volume (Bld) [Entitic vol] 10.0 fL 6.2-12.0 [facility] Monocyte percentageOrdered B y: Shaila Mcnair on 11-28-2024 Monocytes/100 WBC (Bld) 8.4 % 0-10 [facility] Neutrophil percentageOrdered By: Shaila Mcnair on 11-28-2024 Neutrophils/100 WBC (Bld) 65.7 % 47-70 [facility] Nucleated red blood cell per centageOrdered By: Shaila Mcnair on 11-28-2024 Nucleated RBC/100 WBC (Bld) [Ratio] 0 % 0-5 [facility] PSA,Total - Annual Screenon 11-28-2024 PSA,TOT SCREEN 0.85 ng/mL Normal 0.02-4.00 [facility] Comment on above: Result Comment: This test was performed using the [employer] tPSA method. Measured values of a patient??sample can vary depending on the testing procedure used. PSA values determined on patient samples by different testing procedures cannot be used interchangeably. If there is a change in PSA assays while monitoring therapy, sequential testing should be performed to confirm baseline values. Performed By: #### L 501.9520, L501.9910, L501.9985, L506.1001, L500.4050, L100.0100, L500.4100 #### [facility] [address] [place], [place], [address] Platelet countOrdered By: Sonam Mcnair on 11-28-2024 Platelets (Bld) [#/Vol] 243 10*3/uL 150-450 [facility] Potassium measurement (mass/ volume)Ordered By: Shaila Mcnair on 11-28-2024 Potassium (Unsp spec) [Mass/Vol] 4.2 mmol/L 3.3-5.1 [facility] RBC Auto (Bld) [#/Vol]Ordere d By: Shaila Mcnair on 11-28-2024 RBC (Bld) [#/Vol] 4.88 10*6/uL 4.6-6.2 [facility] Screening total cholesterol/ high density lipoprotein (HDL) cholesterol ratioOrdered By: Shaila Mcnair on 11-28-2024 Cholesterol.total/Choles terol in HDL [Mass ratio] 3.82 {ratio} [facility] Serum creatinine measurement (mass/volume)Ordered By: Shaila Mcnair on 11-28-2024 Creatinine [Mass/Vol] 0.95 mg/dL 0.70-1.[address] [facility] Serum globulin measurementOr dered By: Shaila Mcnair on 11-28-2024 Globulin (S) [Mass/Vol] 2.5 g/dL 2.2-4.2 [facility] Serum glucose measurement (m ass/volume)Ordered By: Shaila Mcnair on 11-28-2024 Glucose [Mass/Vol] 102 mg/dL High 70-99 [facility] Serum or plasma alanine leal otransferase (ALT) measurementOrdered By: Shaila Mcnair on 11-28-2024 ALT [Catalytic activity/Vol] 27 U/L <47 [facility] Serum or plasma albumin ashley urement (mass/volume)Ordered By: Shaila Mcnair on 11-28-2024 Albumin [Mass/Vol] 4.4 g/dL 3.5-5.0 [facility] Serum or plasma albumin/glob ulin mass ratioOrdered By: Shaila Mcnair on 11-28-2024 Albumin/Globulin [Mass ratio] 1.7 {ratio} 0.9-2.4 [facility] Serum or plasma alkaline eliseo sphatase measurementOrdered By: Shaila Mcnair on 11-28-2024 ALP [Catalytic activity/Vol] 111 U/L 40-129 [facility] Serum or plasma calcium ashley urement (mass/volume)Ordered By: Shaila Mcnair on 11-28-2024 Calcium [Mass/Vol] 9.3 mg/dL 7.6-11.0 [facility] Serum or plasma cholesterol in HDL measurement (mass/volume)Ordered By: Shaila Mcnair on 11-28-2024 Cholesterol in HDL [Mass/Vol] 42 mg/dL >40 [facility] Comment on above: National Cholesterol Education Program (NCEP) guidelines:<40 mg/dL: Low HDL-cholesterol (major risk factor for CHD)>= 60 mg/dL: High HDL-cholesterol (negative risk factor for CHD)HDL-cholesterol is affected by a number of factors, e.g. smoking, exercise, hormones, sex and age. Serum or plasma cholesterol measurement (mass/volume)Ordered By: Shaila Mcnair on 11-28-2024 Cholesterol [Mass/Vol] 161 mg/dL <201 [facility] Comment on above: Cholesterol level, D esirable <200 mg/dLBorderline high cholesterol 200-239 mg/dLHigh cholesterol >=240 mg/dLRecommendations of the NCEP Adult Treatment Panel for the following risk-cutoff thresholds for the [place] population. Serum or plasma urea nitroge n measurement (mass/volume)Ordered By: Shaila Mcnair on 11-28-2024 Urea nitrogen [Mass/Vol] 17 mg/dL 4-19 [facility] Sodium levelOrdered By: Vita Mcnair on 11-28-2024 Sodium [Moles/Vol] 138 mmol/L 133-145 [facility] TSH DL <= 0.005 mIU/L QnOrde red By: Shaila Mcnair on 11-28-2024 TSH Qn 1.290 uIU/mL 0.300-4.200 [facility] Thyroid Stim Hormone (TSH)on 11-28-2024 TSH 1.290 uIU/mL Normal 0.300-4.200 [facility] Comment on above: Performed By: #### L 501.9520, L501.9910, L501.9985, L506.1001, L500.4050, L100.0100, L500.4100 #### [facility] [place] [address], [address] Total proteinOrdered By: Ashley Mcnair on 11-28-2024 Protein [Mass/Vol] 6.9 g/dL 5.9-8.4 [facility] Triglycerides measurementOrd ered By: Shaila Mcnair on 11-28-2024 Triglyceride [Mass/Vol] 121 mg/dL <199 [facility] Comment on above: The drugs N-Acetylcy steine and Metamizole may falsely depress this assay. Normal range: <150 mg/dLBorderline High: 150-199 mg/dLHigh: 200-499 mg/dLVery High: >500 mg/dL Vitamin D,25 Hydroxyon 11-28 Vitamin D 25-OH 11.0 ng/mL Low 30-100 [facility] Comment on above: Result Comment: Dora min D Status Deficiency: <20 ng/mL (50nmol/L) Insufficiency: 20-30 ng/mL (50-75 nmol/L) Sufficiency: 30-100 ng/mL (75-250 nmol/L) Toxicity: >100 ng/mL (>250 nmol/L) Performed By: #### L 501.9520, L501.9910, L501.9985, L506.1001, L500.4050, L100.0100, L500.4100 #### [facility] [place], [address] White blood cell (WBC) count Ordered By: Shaila Mcnair on 11-28-2024 WBC (Bld) [#/Vol] 8.3 10*3/uL 4.4-11.0 [facility] MR/BMS.Bon 11-27-2024 MR/BMS.[facility] [address] [place] [address] OFFICE VISIT Date of Service: 11/27/24 MR#: [id number] Acct: [id number] Name: ELISABETH SERNA Rep #: [id number] : 1970 Provider: Dr. Shaila way MD Age/Sex: 54/M Location: [facility] Status: Signed Intake Vital Signs 08/25/21 08:06 11/26/24 09:25 11/27/24 10:12 Height 5 ft 8 in 5 ft 8 in 5 ft 8 in Weight: 336 lb BMI 51.0 BP 147/93 H Blood Pressure Location Lt brachial Position Sitting Respiration 16 Pulse 69 Pulse Source Monitor Temp 98.6 F Temp Source Temporal Pulse Oximetry (%) 95 Oxygen Delivery Method room air Intake Visit Reasons: Annual/Physical Chief Complaint: Annual/Physical Associate Faculty Required: No Accompanied by: Self Is patient in pain?: Yes (headache) Pain scale (1-10): 1 Allergies Seasonal Allergies: Uncoded Allergy (Verified 11/27/24 09:58) NEEDS FOLLOW-UP Medications ???Medication ???Instructions ???Recorded ???Confirmed ???Type amlodipine 10 mg tablet 10 mg PO DAILY #90 tabs 11/27/24 0 11/27/24 Rx cetirizine 10 mg tablet (Allergy 10 mg PO QDAY PRN 11/27/24 5 History Relief (cetirizine)) [facility] Medical History (Updated 11/27/24 @ 11:[address] Shaila Mcnair MD) Occipital neuralgia of left side Encounter for wellness examination in adult BMI 45.0-49.9, adult BMI 50.0-59.9, adult Skin lesions Colon cancer screening Uncontrolled hypertension Acute bronchitis, unspecified Acute sinusitis, unspecified Essential hypertension h/o nose surgery Hay fever Seasonal allergies HTN (hypertension) Surgical History H/O arthroscopic knee surgery Family History Other Family history not known due to adoption Social History household members: spouse and children housing: house number of children: 2 current occupational status: employed current occupation: [employer] Smoking Status: Never smoker alcohol intake: never substance use type: does not use what type of physical activity do you participate in: walking frequency: daily do you feel safe at home: Yes HPI HPI Chief Complaint: Annual/Physical Details: ELISABETH SERNA, is a 54 M who presents to the office today for annual wellness follow-up. 54-year-old gentleman who has a history of obesity, now with a BMI over 51, weight 336 pounds. He has a history of hypertension on amlodipine 10 mg daily. He is actually been out for several days. Overall he has been doing reasonably well but he does have a number of questions we spent a considerable amount of time discussing a variety of issues. From an acute standpoint, he has been having left neck pain that travels forward to the left forehead, sometimes sharp stabbing. Hurts to chew at times. He wondered about sinus, he also notes that if he lays on the right side that makes the pain apparently worse. He has changed his pillow as he thought maybe that that was related. In the back of the neck, he points to the area near the base of the skull where he feels the source may be. Sometimes hurts a little bit in the ear but that is not consistent. No change in hearing is noted. No drainage from the ear. He has not had fever or chills. In the past he has follow-up with ENT for other issues and he has had sinus polyps in the past but that does not seem to necessarily be the issue at this point. He does occasionally have some drainage basically from the left nares but not frankly purulent. He also wanted to discuss potential for weight loss medication. He has been trying to do dietary modifications given in the past we spent considerable time discussing dietary nutritional patterns in that context. His weight has actually gone up some since his last visit which has been about 2 years ago. In any event, he is doing periodic fasting at this time. Tends to not eat from 8 PM through noon the following day. Overall trying to have a better quality in the diet as well but still clearly some processed carbohydrates, poor quality foods at times. In that context we discussed the oral medications available on the market today including phentermine, Qsymia, Contrave and also the GLP-1 agonists as well as tirzepatide, which does have the approval for weight loss in the setting of obstructive sleep apnea. He would discuss it with his spouse, look up additional information, and also discuss with his insurance company about whether medications are on their formulary. He would let us know and certainly would have any additional questions,. Last time we saw him, I did refer him to colonoscopy however that was not completed. We discussed colon (more content not included)... Normal [facility] 08-07-2022 [facility] Telephone ([facility]) ELISABETH SERNA ([id number]) 1970 M Date Time Provider Department 08/07/22 [facility] During your visit today, we recorded the following information about you: TAYE Cantor 08/07/2022 7:11 AM Signed Let patient know negative for covid and flu. Kwame Middleton 08/07/2022 7:29 AM Signed Patient given results and verbalized understanding of instructions given. Kwame Middleton Allergies As of Date: 08/07/2022 Noted Allergy Reaction LISINOPRIL 11/07/2016 3 - Cough SEASONAL ALLERGIES 07/23/2013 14 - Other: See Comments Comments: headaches Date Reviewed: 08/06/2022 Reviewed by: Connie Nogueira MA - Fully Assessed Reason for Visit: Results [95] Prescriptions as of 08/07/2022 - predniSONE (DELTASONE) 10 mg tablet Take 4 tabs daily for 3 days, then 2 tabs daily for 3 days, then 1 tab daily for 3 days with food. - losartan (COZAAR) 50 mg tablet Take 1 tablet by mouth once daily. Problem List As Of Date 08/07/2022 Noted Resolved Seasonal allergies [J30.2] 05/27/2014 Well adult exam [Z00.00] 05/27/2014 Essential hypertension [I10] 01/19/2016 Morbid obesity due to excess calories (HCC) [E6*01/19/2016 Encounter Status:Closed by KWAME MIDDLETON on 08/07/22 [facility]OVon 08-06-2022 CNOV Office Visit ([facility] ) ELISABETH SERNA ([id number]) 1970 M Date Time Provider Department 08/06/22 3:30 PM JULIANO GARCÍA [facility] During your visit today, we recorded the following information about you: Temperature Pulse Respiration Blood pressure 97.7 degrees 94/minute 20/minute 132/94 Weight 149.6 kg Juliano García APRN.CNP 08/06/2022 3:32 PM Signed This note was created using NoteWriter. Subjective Elisabeth Serna is a 51 year old male. 51 year old male with PMH HTN and obesity presents for complaints of illness. Acute onset 4 days ago + cough +sinus +headache + sneezing +post nasal drainage Denies SOB or dyspnea Denies abdominal pain Denies N/V/D Denies skin rash or lesions. 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 No beach expert was used. Sinus Problem This is a new problem. The current episode started in the past 7 days. The problem occurs constantly. Associated symptoms include chills, congestion, coughing and headaches. Pertinent negatives include no abdominal pain, anorexia, arthralgias, change in bowel habit, chest pain, diaphoresis, fatigue, fever, joint swelling, myalgias, nausea, neck pain, numbness, rash, sore throat, swollen glands, urinary symptoms, vertigo, visual change, vomiting or weakness. Nothing aggravates the symptoms. He has tried nothing for the symptoms. The treatment provided no relief. PAST MEDICAL HISTORY Diagnosis Date PMH - PAST MEDICAL HISTORY OF seasonal allergies PAST SURGICAL HISTORY Procedure Laterality Date PAST SURGICAL HISTORY OF L AND R knee, arthroscopy PAST SURGICAL HISTORY OF jaw surgery, reconstruction PAST SURGICAL HISTORY OF deviated septum PAST SURGICAL HISTORY OF vascetomy RPR 1ST INGUN HRNA AGE 4 YRS/> REDUCIBLE Hernia repair, inguinal TONSILLECTOMY PRIMARY/SECONDARY Tonsillectomy ALLERGIES Lisinopril and Seasonal Allergies MEDICATIONS losartan (COZAAR) 50 mg tablet Take 1 tablet by mouth once daily. predniSONE (DELTASONE) 10 mg tablet Take 4 tabs daily for 3 days, then 2 tabs daily for 3 days, then 1 tab daily for 3 days with food. FAMILY HISTORY Adopted: Yes Problem Relation Age of Onset other (adopted [Other]) Unknown Social History Tobacco Use Smoking status: Never Smokeless tobacco: Never Substance Use Topics Alcohol use: No Drug use: No Review of Systems Constitutional: Positive for chills. Negative for diaphoresis, fatigue and fever. HENT: Positive for congestion, postnasal drip, sinus pressure and sinus pain. Negative for sore throat. Respiratory: Positive for cough. Negative for apnea, choking and chest tightness. Cardiovascular: Negative for chest pain. Gastrointestinal: Negative for abdominal pain, anorexia, change in bowel habit, nausea and vomiting. Musculoskeletal: Negative for arthralgias, joint swelling, myalgias and neck pain. Skin: Negative for rash. Allergic/Immunologic: Negative for environmental allergies, food allergies and immunocompromised state. Neurological: Positive for headaches. Negative for dizziness, vertigo, facial asymmetry, weakness and numbness. Hematological: Negative for adenopathy. Does not bruise/bleed easily. Psychiatric/Behavioral : Negative for agitation and behavioral problems. Objective BP 132/94 Pulse 94 Temp 36.5 ?C (97.7 ?F) Resp 20 Wt (!) 149.6 kg (329 lb 12.8 oz) SpO2 98% BMI 48.00 kg/m? Physical Exam Vitals and nursing note reviewed. Constitutional: General: He is not in acute distress. Appearance: Normal appearance. He is not ill-appearing, toxic-appearing or diaphoretic. HENT: Head: Normocephalic and atraumatic. Right Ear: External ear normal. Left Ear: External ear normal. Nose: Nose normal. No congestion or rhinorrhea. Mouth/Throat: Mouth: Mucous membranes are moist. Pharynx: Oropharynx is clear. No oropharyngeal exudate or posterior oropharyngeal erythema. Eyes: General: Right eye: No discharge. Left eye: No discharge. Extraocular Movements: Extraocular movements intact. Conjunctiva/sclera: Conjunctivae normal. Pupils: Pupils are equal, round, and reactive to light. Cardiovascular: Rate and Rhythm: Normal rate and regular rhythm. Pulses: Normal pulses. Heart sounds: Normal heart sounds. No murmur heard. No friction rub. No gallop. Pulmonary: Effort: Pulmonary effort is normal. No respiratory distress. Breath sounds: Normal breath sounds. No stridor. No wheezing, rhonchi or rales. Chest: Chest wall: No tenderness. Abdominal: General: Abdomen is flat. There is no distension. Palpations: Abdomen is soft. There is no mass. Tenderness: There is no abdominal tenderness. There is no guarding or rebound. Hernia: No hernia is present. Musculoskeletal: General: No swelling, tenderness, deformity or signs of injury. No (more content not included)... Normal [facility] FLUABV + SARS-CoV-2 Pnl Resp ALL+prbon 08-06-2022 Influenza virus A and B RNA and SARS-CoV-2 (COVID-19) N gene panel ALL+probe (Resp) COVID 19 RESULT: Not detected The method used is RT-PCR or an equivalent NAAT method. Reference Range (the expected result in uninfected individuals): Not detected INFLUENZA A PCR: Not detected INFLUENZA B PCR: Not detected Normal [facility] Comment on above: Performed By: #### [id number] #### [facility] CLIA [id number] [address] [place] [address] [place] OF [place] ANKLE COMP MIN 3 VWS LTon ANKLE COMP MIN 3 VWS LT ANKLE COMP MIN 3 VWS LTOrdering Physician: Jorje Zarate MD07/06/2018 5:10 PMTHREE VIEWS OF THE LEFT ANKLE:Clinical Statement: Pain and injuryComparison: NoneFINDINGS: No acute fracture or subluxation/dislocatio n. Bonymineralization is within normal limits. Moderate sized Achilles tendonenthesophyte and a tiny plantar calcaneal spur are noted. Degenerativechange of the tibiotalar and talofibular joints are noted. An ossicleis noted immediately adjacent the left lateral malleolus, likelyrelated to prior injury.Soft tissue swelling is noted anterior to the ankle joint and alongthe lateral malleolus. No radiopaque foreign bodies.IMPRESSION:No acute findings. ---- Electronic Signature on File ----Signed By: Sylvia García [email or web address] [email or web address] ictated: 07/07/2018 1:26 AMSigned: 07/07/2018 1:29 AM Reported By: SYLVIA GARCÍA M.D. Signed By: SYLVIA GARCÍA M.D. [facility] Vital Signs Date Time Vital Sign Value Performing Clinician Lindai evany 11-27-2024 10:120400 Body height 172.[address] Shaila Mcnair MD Work Phone: [facility] 11-27-2024 10:12-0400 Body mass index (BMI) [Ratio] 51 kg/m2 Dr. Shaila Mcnair MD Work Phone: [facility] 11-27-2024 10:12-0400 Body temperature 98.6 [degF] Dr. Shaila Mcnair MD Work Phone: [facility] 11-27-2024 10:12-0400 Body weight 152.[address] Shaila Mcnair MD Work Phone: [facility] 11-27-2024 10:12-0400 Diastolic blood pressure 93 mm[Hg] Dr. Shaila Mcnair MD Work Phone: [facility] 11-27-2024 10:12-0400 Heart rate 69 /min Dr. Shaila Mcnair MD Work Phone: [facility] 11-27-2024 10:12-0400 Respiratory rate 16 /min Dr. Shaila Mcnair MD Work Phone: [facility] 11-27-2024 10:12-0400 SaO2% (BldA) [Mass fraction] 95 % Dr. Shaila Mcnair MD Work Phone: [facility] 11-27-2024 10:12-0400 Systolic blood pressure 147 mm[Hg] Dr. Shaila Mcnair MD Work Phone: [facility] 08-06-2022 15:24-0500 Body temperature 97.7 [degF] Juliano García [employer] Work Phone: [facility] 08-06-2022 15:24-0500 Body weight 149.6 kg Juliano García [employer] Work Phone: [facility] 08-06-2022 15:24-0500 Diastolic blood pressure 94 mm[Hg] Juliano García [employer] Work Phone: [facility] 08-06-2022 15:24-0500 Heart rate 94 /min Juliano García [employer] Work Phone: [facility] 08-06-2022 15:24-0500 Respiratory rate 20 /min Juliano García [employer] Work Phone: [facility] 08-06-2022 15:24-0500 SaO2% (BldA) [Mass fraction] 98 % Juliano García [employer] Work Phone: [facility] 08-06-2022 15:24-0500 Systolic blood pressure 132 mm[Hg] Juliano García [employer] Work Phone: [facility] 10-21-2021 13:56-0400 Body temperature 97.6 [degF] Dr. Shaila Mcnair Work Phone: [facility] Work Phone: 10-21-2021 13:56-0400 Diastolic blood pressure 90 mm[Hg] Dr. Shaila Mcnair Work Phone: [facility] Work Phone: 10-21-2021 13:56-0400 Heart rate 115 /min Dr. Shaila Mcnair Work Phone: [facility] Work Phone: 10-21-2021 13:56-0400 Respiratory rate 16 /min Dr. Shaila Mcnair Work Phone: [facility] Work Phone: 10-21-2021 13:56-0400 SaO2% (BldA) [Mass fraction] 97 % Dr. Shaila Mcnair Work Phone: [facility] Work Phone: 10-21-2021 13:56-0400 Systolic blood pressure 160 mm[Hg] Dr. Shaila Mcnair Work Phone: [facility] Work Phone: 08-25-2021 07:06-0500 Body height 172.[address] Shaila Mcnair Work Phone: [facility] Work Phone: 08-25-2021 07:06-0500 Body mass index (BMI) [Ratio] 51.3 kg/m2 Dr. Shaila Mcnair Work Phone: [facility] Work Phone: 08-25-2021 07:06-0500 Body temperature 96.8 [degF] Dr. Shaila Mcnair Work Phone: [facility] Work Phone: 08-25-2021 07:06-0500 Body weight 153.[address] Shaila Mcnair Work Phone: [facility] Work Phone: 08-25-2021 07:06-0500 Diastolic blood pressure 90 mm[Hg] Dr. Shaila Mcnair Work Phone: [facility] [place] Work Phone: 08-25-2021 07:06-0500 Heart rate 103 /min Dr. Shaila Mcnair Work Phone: [facility] Work Phone: 08-25-2021 07:06-0500 Respiratory rate 16 /min Dr. Shaila Mcnair Work Phone: [facility] Work Phone: 08-25-2021 07:06-0500 SaO2% (BldA) [Mass fraction] 96 % Dr. Shaila Mcnair Work Phone: [facility] Work Phone: 08-25-2021 07:06-0500 Systolic blood pressure 160 mm[Hg] Dr. Shaila Mcnair Work Phone: [facility] Work Phone: Encounters Encounter Date Encounter Type Care Provider Facility Start: 01-13-2025 ambulatory Shaila Mcnair Facility :[facility] Start: 12-02-2024 Encounter for genera l adult medical examination without abnormal findings Shaila Mcnair [facility] Start: 11-28-2024 End: 11-28-[address] Shaila Mcnair MD Work Phone: [facility] Work Phone: Start: 11-28-2024 End: 11-28-[address] Shaila Mcnair MD -Labor[facility] Start: 11-27-[address] Trixie Mcnair MD Work Phone: [facility] Start: 11-27-2024 End: 11-27-[address] Shaila Mcnair MD -[facility] Work Phone: Start: 11-27-2024 End: 11-27-[address] Shaila Mcnair MD [facility] Start: 11-27-2024 End: 11-28-[address] Shaila Mcnair MD Work Phone: [facility] Work Phone: Start: 08-07-2022 Telephone encounter Nickie KOTHARI Work Phone: [facility] Comment on above: Results Start: 08-06-2022 End: 08-06-2022 ambulatory Facility:[facility] Start: 08-06-2022 End: 08-06-2022 Patient encounter procedure Juliano García [employer] Work Phone: [facility] Comment on above: URI, acute (Primary Dx); Sinusitis, unspecified chronicity, unspecified location Start: 12-09-2021 End: 12-09-[address] Shaila Mcnair Work Phone: [facility] Start: 10-21-2021 End: 10-21-[address] Shaila Mcnair Work Phone: [facility] Start: 08-25-2021 End: 08-25-[address] Shaila Mcnair Work Phone: [facility] Start: 07-06-2018 Patient encounter procedure Myrna Fatima PAC Facility:[facility] Start: 08-15-2016 Patient encounter status Jacque García [employer] Work Phone: [facility] Work Phone: Procedures Date Procedure Procedure Detail Performing Clinician Start: 11-28-2024 Prostate specific an tigen measurement Dr. Shaila Mcnair MD Work Phone: Comment on above: This test was perfor med using the [employer] tPSA method. Measured values of a patient sample can vary depending on the testing procedure used. PSA values determined on patient samples by different testing procedures cannot be used interchangeably. If there is a change in PSA assays while monitoring therapy, sequential testing should be performed to confirm baseline values. Start: 11-28-2024 Vitamin D, 25-hydrox y measurement Dr. Shaila Mcnair MD Work Phone: Comment on above: Vitamin D StatusDefi ciency: <20 ng/mL (50nmol/L)Insufficiency: 20-30 ng/mL (50-75 nmol/L)Sufficiency: 30-100 ng/mL (75-250 nmol/L)Toxicity: >100 ng/mL (>250 nmol/L) Start: 12-09-[address] Shaila Mcnair Work Phone: Plan of Treatment Date Care Activity Detail Author Start: 11-27-2024 Patient referral [facility] Work Phone: Start: 05-27-2024 Urine microalbumin profile DTAP,TDAP,TD (2 - Td or Tdap) [facility] Start: 08-06-2022 End: 08-20-2022 Influenza virus A and B RNA and SARS-CoV-2 (COVID-19) N gene panel - Respiratory specimen by ALL with probe detection [facility] Work Phone: Comment on above: Expected: 08/06/2022 , Expires: 08/20/2022 Start: 07-02-2022 DEPRESSION ASSESSMENT DEPRESSION ASS ESSMENT [facility] Start: 08-25-2021 Patient referral [facility] Work Phone: Start: 08-15-2021 LIPID SCREEN LIPID SCREEN [facility] Start: 05-27-2021 DIABETES SCREEN DIABETES SCREEN [facility] Start: 11-11-2020 COVID-19 VACCINE (3 - Booster for Pfizer series) COVID-19 VACCINE (3 - Booster for Pfizer series) [facility] Start: 10-02-2019 SHINGRIX VACCINE (1 of 2) SHINGRIX VACCINE (1 of 2) [facility] Start: 05-27-2019 ANNUAL PCP TEAM SHIRRER XOCHITL DISEASE VISIT ANNUAL PCP TEAM CHRONIC DISEASE VISIT [facility] Start: 2014 COLOGUARD (FIT-DNA) COLOGUARD (FIT-D NA) [facility] Start: 2014 Colonoscopy COLONOSCOPY [facility] Start: 2014 COLORECTAL CANCER SCREENING COLORECTAL CANCER SCREENING [facility] Start: [address]HY [facility] Start: 2014 FECAL OCCULT BLOOD FECAL OCCULT BLOO D [facility] Start: 2014 SIGMOIDOSCOPY SIGMOIDOSCOPY [facility] Start: 10-02-1987 BP CONTROLLED (<130/80) BP CONTROLLE D (<130/80) [facility] Start: 10-02-1987 HEPATITIS C SCREENING HEPATITIS C SC REENING [facility] Start: 10-02-1987 HIV SCREENING HIV SCREENING [facility] Start: 1969 HEPATITIS B (1 of 3 - 3-dose series) HEPATITIS B (1 of 3 - 3-dose series) [facility] CBC W Auto Different ial panel - Blood [facility] Colonoscopy [facility] Comprehensive metabo lic 1999 panel - Serum or Plasma [facility] Hemoglobin A1c/Hemoglobin.total in Blood [facility] Lipid 1996 panel - Serum or Plasma [facility] Patient referral [facility] Work Phone: Prostate specific antigen measurement [facility] Thyroid stimulating hormone measurement [facility] Vitamin D, 25-hydrox y measurement [facility] Immunizations Immunization Date Immunization Notes Care Provider May calvillo 09-16-2020 Covid (Pfizer) Dr. Shaila galeano Work Phone: [facility] 08-26-2020 Covid (Pfizer) Dr. Shaila galeano Work Phone: [facility] 04-08-2018 influenza, injectabl e, quadrivalent, contains preservative Juliano García [employer] Work Phone: [facility] Work Phone: 05-27-2014 influenza, seasonal, injectable Juliano García [employer] Work Phone: [facility] Work Phone: 05-27-2014 tetanus toxoid, redu ricardo diphtheria toxoid, and acellular pertussis vaccine, adsorbed Juliano García [employer] Work Phone: [facility] Work Phone: Payers Date Payer Category Payer Unknown [id number] 2024 Self-pay [id number] 2018 Unknown [id number] Private Health Insurance [id number] Unknown [id number] Unknown [id number] Unknown [id number] Unknown [id number] Social History Date Type Detail Facility Start: 10-21-2021 Tobacco smoking stat us GAIS Unknown if ever smoked [facility] Work Phone: Start: 06-23-2019 Non-smoker [facility] Start: 1970 Sex Assigned At Male [facility] Start: 08-14-2014 End: 11-26-2024 Tobacco smoking status NHIS Never smoked tobacco [facility] Start: 08-14-2014 Tobacco use and exposure Smokeless tobacco non-user [facility] Start: 08-06-2022 Alcohol intake 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 [place], [place] [address] OFFICE VISIT Date of Service: 11/27/24 MR#: [id number] Acct: [id number] Name: ELISABETH SERNA Rep #: [id number] : 1970 Provider: Dr. Vita Mcnair MD Age/Sex: 54/M Location: [facility] Status: Signed Intake Vital Signs 08/25/21 08:06 11/26/24 09:25 11/27/24 10:12 Height 5 ft 8 in 5 ft 8 in 5 ft 8 in Weight: 336 lb BMI 51.0 BP 147/93 H Blood Pressure Location Lt brachial Position Sitting Respiration 16 Pulse 69 Pulse Source Monitor Temp 98.6 F Temp Source Temporal Pulse Oximetry (%) 95 Oxygen Delivery Method room air Intake Visit Reasons: Annual/Physical Chief Complaint: Annual/Physical Associate Faculty Required: No Accompanied by: Self Is patient in pain?: Yes (headache) Pain scale (1-10): 1 Allergies Seasonal Allergies: Uncoded Allergy (Verified 11/27/24 09:58) NEEDS FOLLOW-UP Medications ?Medication ?Instructions ?Recorded ?Confirmed ?Type amlodipine 10 mg tablet 10 mg PO DAILY #90 tabs 10/3111/27/24 Rx cetirizine 10 mg tablet (Allergy 10 mg PO QDAY PRN 11/27/24 History Relief (cetirizine)) [facility] Medical History (Updated 11/27/24 @ 11:[address] Shaila Mcnair MD) Occipital neuralgia of left side Encounter for wellness examination in adult BMI 45.0-49.9, adult BMI 50.0-59.9, adult Skin lesions Colon cancer screening Uncontrolled hypertension Acute bronchitis, unspecified Acute sinusitis, unspecified Essential hypertension h/o nose surgery Hay fever Seasonal allergies HTN (hypertension) Surgical History H/O arthroscopic knee surgery Family History Other Family history not known due to adoption Social History household members: spouse and children housing: house number of children: 2 current occupational status: employed current occupation: [employer] Smoking Status: Never smoker alcohol intake: never substance use type: does not use what type of physical activity do you participate in: walking frequency: daily do you feel safe at home: Yes HPI HPI Chief Complaint: Annual/Physical Details: ELISABETH SERNA, is a 54 M who presents to the office today for annual wellness follow-up. 54-year-old gentleman who has a history of obesity, now with a BMI over 51, weight 336 pounds. He has a history of hypertension on amlodipine 10 mg daily. He is actually been out for several days. Overall he has been doing reasonably well but he does have a number of questions we spent aconsiderable amount of time discussing a variety of issues. From an acute standpoint, he has been having left neck pain that travels forwardto the left forehead, sometimes sharp stabbing. Hurts to chew at times. He wondered about sinus, he also notes that if he lays on the right side that makesthe pain apparently worse. He has changed his pillow as he thought maybe that that was related. In the back of the neck, he points to the area near the base of the skull where he feels the source may be. Sometimes hurts a little bit in the ear but that is not consistent. No change in hearing is noted. No drainagefrom the ear. He has not had fever or chills. In the past he has follow-up with ENT for other issues and he has had sinus polyps in the past but that does not seem to necessarily be the issue at this point. He does occasionally have some drainage basically from the left nares but not frankly purulent. He also wanted to discuss potential for weight loss medication. He has been trying to do dietary modifications given in the past we spent considerable time discussing dietary nutritional patterns in that context. His weight has actually gone up some since his last visit which has been about 2 years ago. Inany event, he is doing periodic fasting at this time. Tends to not eat from 8 PM through noon the following day. Overall trying to have a better quality in the diet as well but still clearly some processed carbohydrates, poor quality foods at times. In that context we discussed the oral medications available on the market today including phentermine, Qsymia, Contrave and also the GLP-1 agonists as well as tirzepatide, which does have the approval for weight loss inthe setting of obstructive sleep apnea. He would discuss it with his spouse, look up additional information, and also discuss with his insurance company about whether medications are on their formulary. He would let us know and certainly would have any additional questions,. Last time we saw him, I did refer him to colonoscopy however that was not completed. We discussed colonoscopy versus Cologuard today and he is agreeable to colonoscopy. Review of systems per chart. Denies chest pain, chest tightness, shortness of breath wheeze cough or congestion that are new or different. He does have some mild chronic cough he attributes to allergies. Does use Zyrtec as needed but noother medications for allergies. No asthma medications. Physical exam. Vital signs on chart. PERRLA. Sclera are clear. TMs are unremarkable with normal light reflexes. Canals are unremarkable. Posterior pharynx is unremarkable. Good dentition. No cervical or supraclavicular lymph nodes enlarged or tender. No clear thyromegaly. No thyroid nodules readily palpable. Lungs are without wheeze, rhonchi, rales. No E/A changes are heard. Heart is regular. Not tachycardic. No clear murmur, rub, or gallop is identified. The abdomen is soft. Bowel sounds are present. Cranial nerve examination 2 through 12 are grossly unremarkable nonlateralizing. Deep tendon reflexes are 2/4 and symmetric at the bicep, tricep, Achilles, patella. No ankle clonus. No obvious rashes. Patient has several moles on his back, with variable pigmentation melanotic deposits within them of concern. (I did suggestthat he see dermatology a couple of years ago. He is agreeable at this time.) in regards to his neck there is no rash in the back of the neck or scalp. He isdescribing discomfort that will radiate, and appears to be from the occipital nerve origin. There is reproducible tenderness at the base of the skull, left side at the location of the occipital nerve. ROS Const Constitutional: No body ache, chills, excessive sweating, fatigue, fever(s), frequent falls, headache(s), snoring, weakness or change in appetite Eyes Eyes: No blurry vision, change in vision, eye pain or Light sensitivity ENT ENT: Positive for nasal congestion (left side ) and neck pain; No abnormal hearing, ear or mastoid pain, tinnitus, headache(s) or sore throat Resp Respiratory: No cough, shortness of breath, snoring or wheezing Cardio Cardiology: No chest pain at rest, chest pain with exertion, excessive sweating,dyspnea on exertion, lightheadedness, orthopnea or palpitations Gastro GI: No abdominal pain, change in bowel habits, constipation, cramping, diarrhea,nausea/dyspepsia or vomiting Genitourinary Male: No burning urination, painful urination, urinary incontinence or urinary frequency Musc Musculoskeletal: Positive for neck pain; No abnormal gait, joint pain, back pain, limited range of motion, muscle weakness or numbness Skin Skin: No dry skin, redness, lesions, itchy eyes, rash or wounds Neuro Neurology: No abnormal gait, abnormal hearing, weakness, frequent falls, headache(s), memory loss or numbness Psych Psychiatric: No anxiety, No change in appetite, No depression, No memory loss and No Thoughts of harming yourself/Others Endo Endocrine: No cold intolerance, excessive sweating, fatigue, flushing, heat intolerance, increased thirst/drinking or increased hunger Aller/Imm Allergy/Immunologic: No itchy eyes, seasonal allergy symptoms, hives or wheezing Jagdish/Lymp Hematologic/Lymphatic: No easy bleeding or easy bruising Coding Level of Care Code Off vis,est,prev 40-64yrs Diagnoses Encounter for wellness examination in adult Z00.00 Essential hypertension I10 Colon cancer screening Z12.11 Skin lesions L98.9 BMI 50.0-59.9, adult Z68.43 CAROL (obstructive sleep apnea) G47.33 Sleep apnea G47.30 Occipital neuralgia of left side M54.81 Time Spent (min) 40 Assessment and Plan Assessment and Plan (1) Encounter for wellness examination in adult: Status: Acute (2) Essential hypertension: Status: Acute (3) Colon cancer screening: Status: Acute (4) Skin lesions: Status: Acute (5) BMI 50.0-59.9, adult: Status: Acute (6) CAROL (obstructive sleep apnea): Status: Acute (7) Sleep apnea: Status: Acute (8) Occipital neuralgia of left side: Status: Acute Orders: Orders Comprehensive Metabolic Profil Today E55.9 - Vitamin D deficiency, unspecified,G47.30 - Sleep apnea, unspecified, G47.33 - Obstructive sleep apnea (adult) (pediatric), I10 - Essential (primary) hypertension, Z00.00 - Encounter for general adult medical examination without abnormal findings CBC W/Diff, Automated Today E55.9 - Vitamin D deficiency, unspecified, G47.30 -Sleep apnea, unspecified, G47.33 - Obstructive sleep apnea (adult) (pediatric), I10 - Essential (primary) hypertension, Z00.00 - Encounter for general adult medical examination without abnormal findings Lipid Profile Today E55.9 - Vitamin D deficiency, unspecified, G47.30 - Sleep apnea, unspecified, G47.33 - Obstructive sleep apnea (adult) (pediatric), I10 - Essential (primary) hypertension, Z00.00 - Encounter for general adult medical examination without abnormal findings, Z13.220 - Encounter for screening for lipoid disorders Hemoglobin A1c Today E55.9 - Vitamin D deficiency, unspecified, G47.30 - Sleep apnea, unspecified, G47.33 - Obstructive sleep apnea (adult) (pediatric), I10 - Essential (primary) hypertension, R73.9 - Hyperglycemia, unspecified, Z00.00 - Encounter for general adult medical examination without abnormal findings PSA,Total - Annual Screen Today E55.9 - Vitamin D deficiency, unspecified, G47.30 - Sleep apnea, unspecified, G47.33 - Obstructive sleep apnea (adult) (pediatric), I10 - Essential (primary) hypertension, Z00.00 - Encounter for general adult medical examination without abnormal findings, Z12.5 - Encounter for screening for malignant neoplasm of prostate Thyroid Stim Hormone (TSH) Today E55.9 - Vitamin D deficiency, unspecified, G47.30 - Sleep apnea, unspecified, G47.33 - Obstructive sleep apnea (adult) (pediatric), I10 - Essential (primary) hypertension, Z00.00 - Encounter for general adult medical examination without abnormal findings Vitamin D,25 Hydroxy Today E55.9 - Vitamin D deficiency, unspecified, G47.30 - Sleep apnea, unspecified, G47.33 - Obstructive sleep apnea (adult) (pediatric), I10 - Essential (primary) hypertension, Z00.00 - Encounter for general adult medical examination without abnormal findings Referrals General Surgery Z12.11 - Encounter for screening for malignant neoplasm of colon Dermatology L98.9 - Disorder of the skin and subcutaneous tissue, unspecified Plan Details Additional Comments: Patient presented today for annual wellness checkup. 54-year-old gentleman, whohas a history of CAROL, obesity, BMI 51, vitamin D deficiency, essential hypertension on amlodipine. Needs a refill on the amlodipine. We spent considerable time today discussing several issues as above. He is agreeable to colonoscopy at this point in time. Order was placed. Secondly, we spent a lot of time discussing diet, dietary patterns, weight loss. He is interested in potentially looking at medication to assist. He is doing periodic fasting at this point in time and has done so for a while. Overall trying to get a better quality diet but still some highly processed carbohydrates in the diet as per his description. We reviewed the above medications both oral and GLP-1, also considered tirzepatide, and the indication that is out there for sleep apnea along with need for weight loss for which that medication is approved by FDA. He would look into the different options and let us know if he wants to proceed in any particular direction. I think that GLP-1 agonist or tirzepatide would becertainly reasonable consideration. Finally, he has discomfort, described as above, in the back of the neck, and sharper pain, right frontal sinus area. He wonders if it is sinus but he does note that laying in certain positions, particularly if he is laying to the right side, symptoms are worse, and he wonders if it is his neck i.e. the way sleeping. It has improved somewhat sincehe did change pillows that he is sleeping on, and trying to be more cognizant ofsleeping on that side. We discussed chiropractic and they think that is a reasonable option to try to see if this may be occipital nerve involvement triggering the head pain and not necessarily sinus. He does have lots of allergies, and history of asthma but is not on any specific active treatment other than Zyrtec as needed. He has seen ENT for allergy workup in the past. Labs will be obtained as ordered, and finally, he will be referred to dermatology again. In the past I referred him because of some abnormal moles with variable pigment within the moles on his back. These need evaluated and potentially removed as deemed fit by dermatology. Overall 40-minute visit. 11/27/24 1142 <Electronically signed by Shaila hunt MD> Date _ Shaila Mcnair MD Cosigner Signature: Date (if applicable) CC: ~ [facility] Work Phone: Evaluation note 11-27-2024 Note Date & Type Note Facility 11-27-2024 Evaluation note Diagnosis Onset Date Resolution BMI 50.0-59.9, adult acute November 27, 2024 9:56am Colon cancer screening acute Ma y 2024 9:56am Encounter for wellness examination in adult acute November 27, 025 9:56am Essential hypertension acute Ma y 2024 9:56am Occipital neuralgia of left side acute November 27, 2024 9 :56am CAROL (obstructive sleep apnea) acute November 27, 2024 9 :56am Skin lesions acute November 27 9:56am Sleep apnea acute November 27 9:56am [facility] Work Phone: Progress note 11-27-2024 Note Date & Type Note Facility 11-27-2024 Progress note [facility] Note 08-07-2022 Telephone Encounter - Kwame Middleton - 08/07/2022 7:29 AM ESTTelephone Encounter - TAYE Cantor - 08/07/2022 7:09 AM EST Note Date & Type Note Facility 08-07-2022 Miscellaneous Notes Formattin g of this note might be different from the original. Patient given results and verbalized understanding of instructions given. Kwame Middleton Let patient know negative for covid and flu. documented in this encounter [facility] Progress note 08-06-2022 Note Date & Type Note Facility 08-06-2022 Note HNO ID: [id number] Author: Juliano García APRN.[facility] [employer]IED [employer] Service: ? Author Type: Nurse Practitioner Type: Progress Notes Filed: 08/06/2022 3:32 PM Note Text: This note was created using NoteWriter. Subjective Elisabeth Serna is a 51 year old male. 51 year old male with PMH HTN and obesity presents for complaints of illness. Acute onset 4 days ago + cough +sinus +headache + sneezing +post nasal drainage Denies SOB or dyspnea Denies abdominal pain Denies N/V/D Denies skin rash or lesions. 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 No beach expert was used. Sinus Problem This is a new problem. The current episode started in the past 7 days. The problem occurs constantly. Associated symptoms include chills, congestion, coughing and headaches. Pertinent negatives include no abdominal pain, anorexia, arthralgias, change in bowel habit, chest pain, diaphoresis, fatigue, fever, joint swelling, myalgias, nausea, neck pain, numbness, rash, sore throat, swollen glands, urinary symptoms, vertigo, visual change, vomiting or weakness. Nothing aggravates the symptoms. He has tried nothing for the symptoms. The treatment provided no relief. PAST MEDICAL HISTORY Diagnosis Date PMH - PAST MEDICAL HISTORY OF seasonal allergies PAST SURGICAL HISTORY Procedure Laterality Date PAST SURGICAL HISTORY OF L AND R knee, arthroscopy PAST SURGICAL HISTORY OF jaw surgery, reconstruction PAST SURGICAL HISTORY OF deviated septum PAST SURGICAL HISTORY OF vascetomy RPR 1ST INGUN HRNA AGE 4 YRS/> REDUCIBLE Hernia repair, inguinal TONSILLECTOMY PRIMARY/SECONDARY Tonsillectomy ALLERGIES Lisinopril and Seasonal Allergies MEDICATIONS losartan (COZAAR) 50 mg tablet Take 1 tablet by mouth once daily. predniSONE (DELTASONE) 10 mg tablet Take 4 tabs daily for 3 days, then 2 tabs daily for 3 days, then 1 tab daily for 3 days with food. FAMILY HISTORY Adopted: Yes Problem Relation Age of Onset other (adopted [Other]) Unknown Social History Tobacco Use Smoking status: Never Smokeless tobacco: Never Substance Use Topics Alcohol use: No Drug use: No Review of Systems Constitutional: Positive for chills. Negative for diaphoresis, fatigue and fever. HENT: Positive for congestion, postnasal drip, sinus pressure and sinus pain. Negative for sore throat. Respiratory: Positive for cough. Negative for apnea, choking and chest tightness. Cardiovascular: Negative for chest pain. Gastrointestinal: Negative for abdominal pain, anorexia, change in bowel habit, nausea and vomiting. Musculoskeletal: Negative for arthralgias, joint swelling, myalgias and neck pain. Skin: Negative for rash. Allergic/Immunologic: Negative for environmental allergies, food allergies and immunocompromised state. Neurological: Positive for headaches. Negative for dizziness, vertigo, facial asymmetry, weakness and numbness. Hematological: Negative for adenopathy. Does not bruise/bleed easily. Psychiatric/Behavioral: Negative for agitation and behavioral problems. Objective BP 132/94 Pulse 94 Temp 36.5 ?C (97.7 ?F) Resp 20 Wt (!) 149.6 kg (329 lb 12.8 oz) SpO2 98% BMI 48.00 kg/m? Physical Exam Vitals and nursing note reviewed. Constitutional: General: He is not in acute distress. Appearance: Normal appearance. He is not ill-appearing, toxic-appearing or diaphoretic. HENT: Head: Normocephalic and atraumatic. Right Ear: External ear normal. Left Ear: External ear normal. Nose: Nose normal. No congestion or rhinorrhea. Mouth/Throat: Mouth: Mucous membranes are moist. Pharynx: Oropharynx is clear. No oropharyngeal exudate or posterior oropharyngeal erythema. Eyes: General: Right eye: No discharge. Left eye: No discharge. Extraocular Movements: Extraocular movements intact. Conjunctiva/sclera: Conjunctivae normal. Pupils: Pupils are equal, round, and reactive to light. Cardiovascular: Rate and Rhythm: Normal rate and regular rhythm. Pulses: Normal pulses. Heart sounds: Normal heart sounds. No murmur heard. No friction rub. No gallop. Pulmonary: Effort: Pulmonary effort is normal. No respiratory distress. Breath sounds: Normal breath sounds. No stridor. No wheezing, rhonchi or rales. Chest: Chest wall: No tenderness. Abdominal: General: Abdomen is flat. There is no distension. Palpations: Abdomen is soft. There is no mass. Tenderness: There is no abdominal tenderness. There is no guarding or rebound. Hernia: No hernia is present. Musculoskeletal: General: No swelling, tenderness, deformity or signs of injury. Normal range of motion. Cervical back: Normal range of motion and neck supple. No rigidity or tenderness. Right lower leg: No edema. Left lower leg: No edema. Lymphadenopathy: Cervical: No cervical adenopathy. Skin: General: Skin is warm and dry. Capillary Refill: Capillary r (more content not included)... [facility] History of Present illness Narrative 08-06-2022 Juliano García, SOPHIA.[facility] CERTIFIED CONCIERGE - 08/06/2022 3:21 PM EST Note Date & Type Note Facility 08-06-2022 History of Presen t illness Narrative This note was created using SoundSenasation. Subjective Elisabeth Serna is a 51 year old male. 51 year old male with PMH HTN and obesity presents for complaints of illness. Acute onset 4 days ago + cough +sinus +headache + sneezing +post nasal drainage Denies SOB or dyspnea Denies abdominal pain Denies N/V/D Denies skin rash or lesions. 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 No beach expert was used. Sinus Problem This is a new problem. The current episode started in the past 7 days. The problem occurs constantly. Associated symptoms include chills, congestion, coughing and headaches. Pertinent negatives include no abdominal pain, anorexia, arthralgias, change in bowel habit, chest pain, diaphoresis, fatigue, fever, joint swelling, myalgias, nausea, neck pain, numbness, rash, sore throat, swollen glands, urinary symptoms, vertigo, visual change, vomiting or weakness. Nothing aggravates the symptoms. He has tried nothing for the symptoms. The treatment provided no relief. 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 predniSONE (DELTASONE) 10 mg tablet Take 4 tabs daily for 3 days, then 2 tabs daily for 3 days, then 1 tab daily for 3 days with food. FAMILY HISTORY Adopted: Yes Problem Relation Age of Onset other (adopted [Other]) Unknown Social History Tobacco Use Smoking status: Never Smokeless tobacco: Never Substance Use Topics Alcohol use: No Drug use: No Review of Systems Constitutional: Positive for chills. Negative for diaphoresis, fatigue and fever. HENT: Positive for congestion, postnasal drip, sinus pressure and sinus pain. Negative for sore throat. Respiratory: Positive for cough. Negative for apnea, choking and chest tightness. Cardiovascular: Negative for chest pain. Gastrointestinal: Negative for abdominal pain, anorexia, change in bowel habit, nausea and vomiting. Musculoskeletal: Negative for arthralgias, joint swelling, myalgias and neck pain. Skin: Negative for rash. Allergic/Immunologic: Negative for environmental allergies, food allergies and immunocompromised state. Neurological: Positive for headaches. Negative for dizziness, vertigo, facial asymmetry, weakness and numbness. Hematological: Negative for adenopathy. Does not bruise/bleed easily. Psychiatric/Behavioral: Negative for agitation and behavioral problems. Objective BP 132/94 Pulse 94 Temp 36.5 C (97.7 F) Resp 20 Wt (!) 149.6 kg (329 lb 12.8 oz) SpO2 98% BMI 48.00 kg/m Physical Exam Vitals and nursing note reviewed. Constitutional: General: He is not in acute distress. Appearance: Normal appearance. He is not ill-appearing, toxic-appearing or diaphoretic. HENT: Head: Normocephalic and atraumatic. Right Ear: External ear normal. Left Ear: External ear normal. Nose: Nose normal. No congestion or rhinorrhea. Mouth/Throat: Mouth: Mucous membranes are moist. Pharynx: Oropharynx is clear. No oropharyngeal exudate or posterior oropharyngeal erythema. Eyes: General: Right eye: No discharge. Left eye: No discharge. Extraocular Movements: Extraocular movements intact. Conjunctiva/sclera: Conjunctivae normal. Pupils: Pupils are equal, round, and reactive to light. Cardiovascular: Rate and Rhythm: Normal rate and regular rhythm. Pulses: Normal pulses. Heart sounds: Normal heart sounds. No murmur heard. No friction rub. No gallop. Pulmonary: Effort: Pulmonary effort is normal. No respiratory distress. Breath sounds: Normal breath sounds. No stridor. No wheezing, rhonchi or rales. Chest: Chest wall: No tenderness. Abdominal: General: Abdomen is flat. There is no distension. Palpations: Abdomen is soft. There is no mass. Tenderness: There is no abdominal tenderness. There is no guarding or rebound. Hernia: No hernia is present. Musculoskeletal: General: No swelling, tenderness, deformity or signs of injury. Normal range of motion. Cervical back: Normal range of motion and neck supple. No rigidity or tenderness. Right lower leg: No edema. Left lower leg: No edema. Lymphadenopathy: Cervical: No cervical adenopathy. Skin: General: Skin is warm and dry. Capillary Refill: Capillary refill takes less than 2 seconds. Coloration: Skin is not jaundiced or pale. Findings: No bruising, lesion or rash. Neurological: General: No focal deficit present. Mental Status: He is alert and oriented to person, place, and time. Cranial Nerves: No cranial nerve deficit. Sensory: No sensory deficit. Motor: No weakness. Coordination: Coordination normal. Gait: Gait normal. Deep Tendon Reflexes: Reflexes normal. Psychiatric: Mood and Affect: Mood normal. Behavior: Behavior normal. Thought Content: Thought content normal. Assessment and Plan ASSESSMENT/PLAN: 1. URI, acute - ICD9: 465.9, ICD10: J06.9 (primary diagnosis) X 4 days - Discussed viral etiology and rationale for treatment. - Symptomatic treatment with prn analgesia - Supportive care with fluids and rest - The patient may also use OTC cough and cold meds as needed, warm salt water gargles, throat lozenges and/or OTC throat spray as needed, nasal saline gtts and suction prn, and RX Prednisone . - Follow up in 3-5 days if symptoms persist or sooner if worsening of symptoms - PREDNISONE 10 MG TABLET - COVID WITH FLUA+B, ROUTINE 2. Sinusitis, unspecified chronicity, unspecified location - ICD9: 473.9, ICD10: J32.9 - Supportive care with plenty of fluids, rest, and analgesia prn. - Follow up in 3-5 days if symptoms persist or worsen. - PREDNISONE 10 MG TABLET - COVID WITH FLUA+B, ROUTINE Juliano García APRN.[facility] CERTIFIED CONCIERGE documented in this encounter [facility] Evaluation note Note Date & Type Note Facility Evaluation note Diagnosis Onset Date BMI 45.0-49.9, adult acute Essential hypertension acute CAROL (obstructive sleep apnea) acute Sleep apnea acute Vitamin D deficiency acute Chronic cough chronic Acute sinusitis acute [facility] [place] Work Phone: Evaluation note Note Date & Type Note Facility Evaluation note Diagnosis URI, acute- Primary Acute upper respiratory infections of unspecified site Sinusitis, unspecified chronicity, unspecified location documented in this encounter [facility] Discharge instructions Note Date & Type Note Facility Hospital Discharge instructions [facility] [place] Work Phone: Hospital Discharge instructions Note Date & Type Note Facility Hospital Discharge instructions Ambulatory OrdersDermatology Location: None SelectedGeneral Surgery Location: None [facility] Work Phone: Summary Purpose Family History No Family History Records Found Relationship Condition Age at Onset Recorded Date/T mendy Not Specified Family history not k nown due to adoption Unknown Advance Directives No Advanced Directives Records Found Advance Directive Response Recorded Date/ Time Living Will No June 23 4:24pm Power of Health Practice Manager No June 23, 2019 4:24pm Chief Complaint and Reason for Visit Chief Complaint 6 M FU COUGH, CONGESTION CHRONIC SINUSITIS, NASAL POLYP Reason for Visit BMI 45.0-49.9, adult Essential hypertension CAROL (obstructive sleep apnea) Sleep apnea Vitamin D deficiency Chronic cough Acute sinusitis Chief Complaint Admit Date Annual/Physical November 27, 2024 9:56a m Reason for Visit Admit Date BMI 50.0-59.9, adult November 27, 2024 9:56 am Colon cancer screening November 27, 2024 9: 56am Encounter for wellness examination in ad ult November 27, 2024 9:56am Essential hypertension November 27, 2024 9: 56am Occipital neuralgia of left side October 9:56am CAROL (obstructive sleep apnea) November 27, 2024 9:56am Skin lesions November 27, 2024 9:56a m Sleep apnea November 27, 2024 9:56a m Health Concerns Infection Onset Date Last Indicated Resolved Time COVID-19 Rule-Out 08/06/2022 08/06/2022 Additional Source Comments (unrecognized sect ion and content) No Status Records FoundNo Status Records FoundNo Status Records Found INFORMATION SOURCE (unrecogn ized section and content) DATE CREATED AUTHOR 07/09/2018 [facility] DATE CREATED AUTHOR AUTHOR'S ORGANIZ ATION 08/07/2022 [facility] DATE CREATED AUTHOR AUTHOR'S ORGANIZ ATION 01/03/2025 [facility] Goals (unrecognized section and content) Goals may be documented in a n alternate sectionGoals may be documented in an alternate sectionGoals may be documented in an alternate section Source Comments (unrecognize d section and content) In the event this informatio n is protected by the Federal Confidentiality of Alcohol and Drug Abuse Patient Records regulations: The Federal rules restrict any use of the information to criminally investigate or prosecute any alcohol or drug abuse patient.[facility] the event this information is protected by the Federal Confidentiality of Alcohol and Drug Abuse Patient Records regulations: The Federal rules restrict any use of the information to criminally investigate or prosecute any alcohol or drug abuse patient.[facility] Reason for Visit (unrecogniz ed section and content) Reason Comments Nasal Congestion Sinus drainage, BAILEY x 4 days Reason Comments Results Care Teams (unrecognized sec tion and content) Team Status: Active Member Role Status Dates Dr. Brien Maldonado MD Family Provider Active Dr. Shaila Mcnair MD Primary Care Provider Active Team Status: Inactive Member Role Status Dates Dr. Shaila Mcnair MD Primary Care Provider Active Start: November 27, 2024 End: November 27, 2024 Dr. Shaila Mcnair MD Attending Provider Active Start: November 27, 2024 End: November 27, 2024 Team Status: Inactive Member Role Status Dates Dr. Shaila Mcnair MD Primary Care Provider Active Start: November 28, 2024 End: November 28, 2024 Dr. Shaila Mcnair MD Attending Provider Active Start: November 28, 2024 End: November 28, 2024 Dr. Shaila Mcnair MD Referring Provider Active Start: November 28, 2024 End: November 28, 2024 FOR RECORDS PERTAINING TO PATIENTS WHO ARE OR HAVE BEEN ENROLLED IN A CHEMICAL DEPENDENCY/SUBSTANCEABUSE PROGRAM, SOME INFORMATION MAY BE OMITTED. This clinical summary was aggregated from multiple sources. Caution should be exercised in using it in the provision of clinical care. This summary normalizes information from multiple sources, and as a consequence, information in this document may materially change the coding, format and clinical context of patient data. In addition, data may be omitted in some cases. CLINICAL DECISIONS SHOULD BE BASED ON THE PRIMARY CLINICAL RECORDS. [employer] provides no warranty or guarantee of the accuracy or completeness of information in this document.
--- OUTSIDE RECORDS SUMMARY | 2025-01-13 08:23 | XMS RPT_ITS | CCD ---
Author Organization [facility] Care Team Providers Care Estate Manager Name Role Phone Myrna Kimble Unavailable UnavailDr. Shaila Benitez Primary Care Provider Dr. Shaila Mcnair Attending Provider Dr. Shaila Mcnair Referring Provider [phone] TAYE Galvan Attending Provider [phone] Un[address] Primary Care Provider Dr. Shaila Sequeira [...] Lisinopril; Translations: [LISINOPRIL] Drug Allergy 7 Cough [facility] Work Phone: (3 sources) Seasonal allergy; Translations: [SEASONAL ALLERGIES] Allergy to substance 4 Other: See Comments [facility] (1 source) Seasonal Allergies: Uncoded; Translations: [Seasonal Allergies: Uncoded] Propensity to adverse reactions (disorder) 5 [facility] Repository Medications Current Medications Medication Drug Class(es) [...] Auto (Unsp spec) [#/Vol] 1.88 10*3/uL 0.83-4.51 [facility] Absolute neutrophil countOrd ered By: Shaila Mcnair on 11-28-2024 Neutrophils (Bld) [#/Vol] 5.5 10*3/uL 2.0-7.7 [facility] Anion gap in Serum or Plasma Ordered By: Shaila Mcnair on 11-28-2024 Anion gap [Moles/Vol] 11 mmol/L 5- [facility] Automated lymphocyte count a s percentage of total leukocytesOrdered By: Shaila Mcnair on 11-28-2024 Lymphocytes/100 WBC Auto (Unsp spec) 22.7 % - [facility] BUN/creatinine ratioOrdered By: Shaila Mcnair on 11-28-2024 Urea nitrogen/Creatinine [Mass ratio] 18.0 mg/mg 10- [facility] Basophil percentageOrdered B y: Shaila Mcnair on 11-28-2024 Basophils/100 WBC (Bld) 0.4 % 0-1 [facility] Bilirubin, totalOrdered By: Shaila Mcnair on 11-28-2024 Bilirubin [Mass/Vol] 0.43 mg/dL 0.00-1.[address] [facility] CBC W/Diff, Automatedon 11-01 Absolute Lymph 1.88 X10 3/uL Normal 0.83-4.51 [facility] Comment on above: Performed By: #### L 501.9520, L501.9910, L501.9985, L506.1001, L500.4050, L100.0100, L500.4100 #### [facility] [address] [place], [address] Absolute Neut 5.5 X10 3/uL Normal 2.0-7.7 [facility] Comment on above: Performed By: #### L 501.9520, L501.9910, L501.9985, L506.1001, L500.4050, L100.0100, L500.4100 #### [facility] [address] [place], [address] Basophils/100 WBC (Bld) 0.4 % Normal 0-1 [facility] Comment on above: Performed By: #### L 501.9520, L501.9910, L501.9985, L506.1001, L500.4050, L100.0100, L500.4100 #### [facility] [address] [place], [address] Eosinophils/100 WBC (Bld) 2.4 % Normal 0-5 [facility] Comment on above: Performed By: #### L 501.9520, L501.9910, L501.9985, L506.1001, L500.4050, L100.0100, L500.4100 #### [facility] [address] [place], [address] Erythrocyte distribution width (RBC) [Ratio] 13.2 % Normal 11.6-14.6 [facility] Comment on above: Performed By: #### L 501.9520, L501.9910, L501.9985, L506.1001, L500.4050, L100.0100, L500.4100 #### [facility] [address] [place], [address] Hematocrit (Bld) [Volume fraction] 42.4 % Normal 40-54 [facility] Comment on above: Performed By: #### L 501.9520, L501.9910, L501.9985, L506.1001, L500.4050, L100.0100, L500.4100 #### [facility] [address] [place], [address] Hemoglobin (Bld) [Mass/Vol] 14.6 g/dL Normal 13.0-16.5 [facility] Comment on above: Performed By: #### L 501.9520, L501.9910, L501.9985, L506.1001, L500.4050, L100.0100, L500.4100 #### [facility] [address] [place], [address] IG% 0.400 Normal 0.0-0.9 [facility] Comment on above: Result Comment: IG% - Immature Granulocytes (promyelocytes, myelocytes and metamyelocytes) > 1% indicates that a LEFT SHIFT is Present. Performed By: #### L 501.9520, L501.9910, L501.9985, L506.1001, L500.4050, L100.0100, L500.4100 #### [facility] [address] [place], [address] Lymphocytes/100 WBC (Bld) 22.7 % Normal 19-41 [facility] Comment on above: Performed By: #### L 501.9520, L501.9910, L501.9985, L506.1001, L500.4050, L100.0100, L500.4100 #### [facility] [address] [place], [address] MCH (RBC) [Entitic mass] 29.9 pg Normal 27.0-32.0 [facility] Comment on above: Performed By: #### L 501.9520, L501.9910, L501.9985, L506.1001, L500.4050, L100.0100, L500.4100 #### [facility] [address] [place], [address] MCHC (RBC) [Mass/Vol] 34.4 g/dL Normal 32-36 [facility] Comment on above: Performed By: #### L 501.9520, L501.9910, L501.9985, L506.1001, L500.4050, L100.0100, L500.4100 #### [facility] [address] [place], [address] MCV (RBC) [Entitic vol] 86.9 fL Normal 80-94 [facility] Comment on above: Performed By: #### L 501.9520, L501.9910, L501.9985, L506.1001, L500.4050, L100.0100, L500.4100 #### [facility] [address] [place], [address] Monocytes/100 WBC (Bld) 8.4 % Normal 0-10 [facility] Comment on above: Performed By: #### L 501.9520, L501.9910, L501.9985, L506.1001, L500.4050, L100.0100, L500.4100 #### [facility] [address] [place], [address] Neutrophils/100 WBC (Bld) 65.7 % Normal 47-70 [facility] Comment on above: Performed By: #### L 501.9520, L501.9910, L501.9985, L506.1001, L500.4050, L100.0100, L500.4100 #### [facility] [address] [place], [address] Nucleated RBC (Bld) [#/Vol] 0 10*3/uL Normal 0-5 [facility] Comment on above: Performed By: #### L 501.9520, L501.9910, L501.9985, L506.1001, L500.4050, L100.0100, L500.4100 #### [facility] [address] [place], [address] Platelet mean volume (Bld) [Entitic vol] 10.0 fL Normal 6.2-12.0 [facility] Comment on above: Performed By: #### L 501.9520, L501.9910, L501.9985, L506.1001, L500.4050, L100.0100, L500.4100 #### [facility] [address] [place], [address] Platelets (Bld) [#/Vol] 243 10*3/uL Normal 150-450 [facility] Comment on above: Performed By: #### L 501.9520, L501.9910, L501.9985, L506.1001, L500.4050, L100.0100, L500.4100 #### [facility] [address] [place], [address] RBC (Bld) [#/Vol] 4.88 10*6/uL Normal 4.6-6.2 [facility] Comment on above: Performed By: #### L 501.9520, L501.9910, L501.9985, L506.1001, L500.4050, L100.0100, L500.4100 #### [facility] [address] [place], [address] RDW SD 41.7 fl Normal 35.1-43.9 [facility] Comment on above: Performed By: #### L 501.9520, L501.9910, L501.9985, L506.1001, L500.4050, L100.0100, L500.4100 #### [facility] [address] [place], [address] WBC (Bld) [#/Vol] 8.3 10*3/uL Normal 4.4-11.0 [facility] Comment on above: Performed By: #### L 501.9520, L501.9910, L501.9985, L506.1001, L500.4050, L100.0100, L500.4100 #### [facility] [address] [place], [address] Calculated very low density lipoprotein (VLDL) cholesterol measurementOrdered By: Shaila Mcnair on 11-28-2024 Calculated very low density lipoprotein (VLDL) cholesterol measurement 24 mg/dL 5-40 [facility] Carbon dioxide, total [Moles /volume] in Central venous bloodOrdered By: Shaila Mcnair on 11-28-2024 CO2 [Moles/Vol] 23.5 mmol/L 21.0-32.0 [facility] Chloride assayOrdered By: Sonam Mcnair on 11-28-2024 Chloride [Moles/Vol] 104 mmol/L 98-[address] [facility] Comprehensive Metabolic Prof ilon 11-28-2024 Albumin [Mass/Vol] 4.4 g/dL Normal 3.5-5.0 [facility] Comment on above: Performed By: #### L 501.9520, L501.9910, L501.9985, L506.1001, L500.4050, L100.0100, L500.4100 #### [facility] [address] [place], [address] Albumin/Globulin [Mass ratio] 1.7 {ratio} Normal 0.9-2.4 [facility] Comment on above: Performed By: #### L 501.9520, L501.9910, L501.9985, L506.1001, L500.4050, L100.0100, L500.4100 #### [facility] [address] [place], [address] ALK PHOS 111 U/L Normal 40-129 [facility] Comment on above: Performed By: #### L 501.9520, L501.9910, L501.9985, L506.1001, L500.4050, L100.0100, L500.4100 #### [facility] [address] [place], [address] ALT [Catalytic activity/Vol] 27 U/L Normal <=46 [facility] Comment on above: Performed By: #### L 501.9520, L501.9910, L501.9985, L506.1001, L500.4050, L100.0100, L500.4100 #### [facility] [address] [place], [address] AST [Catalytic activity/Vol] 20 U/L Normal <=37 [facility] Comment on above: Performed By: #### L 501.9520, L501.9910, L501.9985, L506.1001, L500.4050, L100.0100, L500.4100 #### [facility] [address] [place], [address] Bilirubin [Mass/Vol] 0.43 mg/dL Normal 0.00-1.[address] [facility] Comment on above: Performed By: #### L 501.9520, L501.9910, L501.9985, L506.1001, L500.4050, L100.0100, L500.4100 #### [facility] [address] [place], [address] BUN/CRE 18.0 RATIO Normal 10-20 [facility] Comment on above: Performed By: #### L 501.9520, L501.9910, L501.9985, L506.1001, L500.4050, L100.0100, L500.4100 #### [facility] [address] [place], [address] Calcium [Mass/Vol] 9.3 mg/dL Normal 7.6-11.0 [facility] Comment on above: Performed By: #### L 501.9520, L501.9910, L501.9985, L506.1001, L500.4050, L100.0100, L500.4100 #### [facility] [address] [place], [address] Chloride [Moles/Vol] 104 mmol/L Normal 98-[address] [facility] Comment on above: Performed By: #### L 501.9520, L501.9910, L501.9985, L506.1001, L500.4050, L100.0100, L500.4100 #### [facility] [address] [place], [address] CO2 [Moles/Vol] 23.5 mmol/L Normal 21.0-32.0 [facility] Comment on above: Performed By: #### L 501.9520, L501.9910, L501.9985, L506.1001, L500.4050, L100.0100, L500.4100 #### [facility] [address] [place], [address] Creatinine [Mass/Vol] 0.95 mg/dL Normal 0.70-1.20 [facility] Comment on above: Performed By: #### L 501.9520, L501.9910, L501.9985, L506.1001, L500.4050, L100.0100, L500.4100 #### [facility] [address] [place], [address] GAP 11 Normal 5-15 [facility] Comment on above: Performed By: #### L 501.9520, L501.9910, L501.9985, L506.1001, L500.4050, L100.0100, L500.4100 #### [facility] [address] [place], [address] GFR/1.73 sq M.predicted among non-blacks MDRD (S/P/Bld) [Vol rate/Area] 95 mL/min/{1.73_m2} Normal >60 [facility] Comment on above: Result Comment: mL/m in/1.73m2 CKD-EPI Creatinine Equation (2020) Performed By: #### L 501.9520, L501.9910, L501.9985, L506.1001, L500.4050, L100.0100, L500.4100 #### [facility] [address] [place], [address] Globulin (S) [Mass/Vol] 2.5 g/dL Normal 2.2-4.2 [facility] Comment on above: Performed By: #### L 501.9520, L501.9910, L501.9985, L506.1001, L500.4050, L100.0100, L500.4100 #### [facility] [address] [place], [address] Glucose [Mass/Vol] 102 mg/dL High 70-99 [facility] Comment on above: Performed By: #### L 501.9520, L501.9910, L501.9985, L506.1001, L500.4050, L100.0100, L500.4100 #### [facility] [address] [place], [address] Potassium [Moles/Vol] 4.2 mmol/L Normal 3.3-5.1 [facility] Comment on above: Performed By: #### L 501.9520, L501.9910, L501.9985, L506.1001, L500.4050, L100.0100, L500.4100 #### [facility] [address] [place], [address] Sodium [Moles/Vol] 138 mmol/L Normal 133-145 [facility] Comment on above: Performed By: #### L 501.9520, L501.9910, L501.9985, L506.1001, L500.4050, L100.0100, L500.4100 #### [facility] [address] [place], [address] T PROT 6.9 g/dL Normal 5.9-8.4 [facility] Comment on above: Performed By: #### L 501.9520, L501.9910, L501.9985, L506.1001, L500.4050, L100.0100, L500.4100 #### [facility] [address] [place], [address] Urea nitrogen [Mass/Vol] 17 mg/dL Normal 4-19 [facility] Comment on above: Performed By: #### L 501.9520, L501.9910, L501.9985, L506.1001, L500.4050, L100.0100, L500.4100 #### [facility] [address] [place], [address] Eosinophil percentageOrdered By: Shaila Mcnair on 11-28-2024 Eosinophils/100 WBC (Bld) 2.4 % 0-5 [facility] Erythrocyte distribution wid th ratioOrdered By: Shaila Mcnair on 11-28-2024 Erythrocyte distribution width (RBC) [Ratio] 13.2 % 11.6-14.6 [facility] Erythrocyte distribution wid th standard deviationOrdered By: Shaila Mcnair on 11-28-2024 Erythrocyte distribution width (RBC) [Ratio] 41.7 fl 35.1-43.9 [facility] Glomerular filtration rate ( GFR) estimation/1.73 sq m using serum, plasma, or whole bOrdered By: Shaila Mcnair on 11-28-2024 GFR/1.73 sq M.predicted among non-blacks MDRD (S/P/Bld) [Vol rate/Area] 95 mL/min/{1.73_m2} >60 [facility] Comment on above: mL/min/1.73m2 CKD-EP I Creatinine Equation (2020) Hematocrit Auto (Bld) [Volum e fraction]Ordered By: Shaila Mcnair on 11-28-2024 Hematocrit (Bld) [Volume fraction] 42.4 % 40-54 [facility] Hemoglobin A1con 11-28-2024 HbA1c (Bld) [Mass fraction] 5.6 % Normal <=5.6 [facility] Comment on above: Result Comment: Norm al < 5.7 % Prediabetic 5.7 - 6.4 % Diabetic >or= 6.5 % Please note range changes. Performed By: #### L 501.9520, L501.9910, L501.9985, L506.1001, L500.4050, L100.0100, L500.4100 #### [facility] [address] [place], [place], [id number] Hemoglobin A1c percentageOrd ered By: Shaila Mcnair on 11-28-2024 HbA1c (Bld) [Mass fraction] 5.6 % <5.7 [facility] Comment on above: Normal < 5.7 % Predi abetic 5.7 - 6.4 % Diabetic >or= 6.5 % Please note range changes. Hemoglobin measurementOrdere d By: Shaila Mcnair on 11-28-2024 Hemoglobin (Bld) [Mass/Vol] 14.6 g/dL 13.0-16.5 [facility] Immature granulocytes/100 WB C Auto (Bld)Ordered By: Shaila Mcnair on 11-28-2024 Immature granulocytes/100 WBC (Bld) 0.400 % 0.0-0.9 [facility] Comment on above: IG% - Immature Granu locytes (promyelocytes, myelocytes and metamyelocytes) > 1% indicates that a LEFT SHIFT is Present. LDL calc ser/plasOrdered By: Shaila Mcnair on 11-28-2024 Cholesterol in LDL [Mass/Vol] 95 mg/dL [facility] Comment on above: Drrdhxlcxe=955-072 m g/dL & Higher Zype=337 mg/dL or greater Laboratory - Chemistry and C hemistry - challengeOrdered By: Shaila Mcnair on 11-28-2024 AST [Catalytic activity/Vol] 20 U/L <38 [facility] Lipid Profileon 11-28-2024 CHOL:HDL 3.82 Normal [facility] Comment on above: Performed By: #### L 501.9520, L501.9910, L501.9985, L506.1001, L500.4050, L100.0100, L500.4100 #### [facility] [address] [place], [address] Cholesterol [Mass/Vol] 161 mg/dL Normal <=200 [facility] Comment on above: Result Comment: Chol esterol level, Desirable <200 mg/dL Borderline high cholesterol 200-239 mg/dL High cholesterol >=240 mg/dL Recommendations of the NCEP Adult Treatment Panel for the following risk-cutoff thresholds for the [place] population. Performed By: #### L 501.9520, L501.9910, L501.9985, L506.1001, L500.4050, L100.0100, L500.4100 #### [facility] [address] [place], [address] Cholesterol in HDL [Mass/Vol] 42 mg/dL Normal [facility] Comment on above: Result Comment: Em onal Cholesterol Education Program (NCEP) guidelines: <40 mg/dL: Low HDL-cholesterol (major risk factor for CHD) >= 60 mg/dL: High HDL-cholesterol (negative risk factor for CHD) HDL-cholesterol is affected by a number of factors, e.g. smoking, exercise, hormones, sex and age. Performed By: #### L 501.9520, L501.9910, L501.9985, L506.1001, L500.4050, L100.0100, L500.4100 #### [facility] [address] [place], [address] Cholesterol in LDL [Mass/Vol] 95 mg/dL Normal [facility] Comment on above: Result Comment: Bord fxqfix=375-612 mg/dL Higher Kmsd=435 mg/dL or greater Performed By: #### L 501.9520, L501.9910, L501.9985, L506.1001, L500.4050, L100.0100, L500.4100 #### [facility] [address] [place], [address] Cholesterol in VLDL [Mass/Vol] 24 mg/dL Normal 5-40 [facility] Comment on above: Performed By: #### L 501.9520, L501.9910, L501.9985, L506.1001, L500.4050, L100.0100, L500.4100 #### [facility] [address] [place], [place], [address] Triglyceride [Mass/Vol] 121 mg/dL Normal [facility] Comment on above: Result Comment: The drugs N-Acetylcysteine and Metamizole may falsely depress this assay. Normal range: <150 mg/dL Borderline High: 150-199 mg/dL High: 200-499 mg/dL Very High: >500 mg/dL Performed By: #### L 501.9520, L501.9910, L501.9985, L506.1001, L500.4050, L100.0100, L500.4100 #### [facility] [address] [place], [place], [id number] MCV (mean corpuscular volume ) determinationOrdered By: Shaila Mcnair on 11-28-2024 MCV (RBC) [Entitic vol] 86.9 fL 80-94 [facility] Mean corpuscular hemoglobin (MCH) determinationOrdered By: Shaila Mcnair on 11-28-2024 MCH (RBC) [Entitic mass] 29.9 pg 27.0-32.0 [facility] Mean corpuscular hemoglobin concentration (MCHC) determinationOrdered By: Shaila Mcnair on 11-28-2024 MCHC (RBC) [Mass/Vol] 34.4 g/dL 32-36 [facility] Mean platelet volume determi nationOrdered By: Shaila Mcnair on 11-28-2024 Platelet mean volume (Bld) [Entitic vol] 10.0 fL 6.2-12.0 [facility] Monocyte percentageOrdered B y: Shaila Mcnair on 11-28-2024 Monocytes/100 WBC (Bld) 8.4 % 0-10 [facility] Neutrophil percentageOrdered By: Shaila Mcnair on 11-28-2024 Neutrophils/100 WBC (Bld) 65.7 % 47-70 [facility] Nucleated red blood cell per centageOrdered By: Shaila Mcnair on 11-28-2024 Nucleated RBC/100 WBC (Bld) [Ratio] 0 % 0-5 [facility] PSA,Total - Annual Screenon 11-28-2024 PSA,TOT SCREEN 0.85 ng/mL Normal 0.02-4.00 [facility] Comment on above: Result Comment: This test [...] L501.9910, L501.9985, L506.1001, L500.4050, L100.0100, L500.4100 #### [facility] [address] [place], [place], [address] Platelet countOrdered By: Sonam Mcnair on 11-28-2024 Platelets (Bld) [#/Vol] 243 10*3/uL 150-450 [facility] Potassium measurement (mass/ volume)Ordered By: Shaila Mcnair on 11-28-2024 Potassium (Unsp spec) [Mass/Vol] 4.2 mmol/L 3.3-5.1 [facility] RBC Auto (Bld) [#/Vol]Ordere d By: Shaila Mcnair on 11-28-2024 RBC (Bld) [#/Vol] 4.88 10*6/uL 4.6-6.2 [facility] Screening total cholesterol/ high density lipoprotein (HDL) cholesterol ratioOrdered By: Shaila Mcnair on 11-28-2024 Cholesterol.total/Choles terol in HDL [Mass ratio] 3.82 {ratio} [facility] Serum creatinine measurement (mass/volume)Ordered By: Shaila Mcnair on 11-28-2024 Creatinine [Mass/Vol] 0.95 mg/dL 0.70-1.20 [facility] Serum globulin measurementOr dered By: Shaila Mcnair on 11-28-2024 Globulin (S) [Mass/Vol] 2.5 g/dL 2.2-4.2 [facility] Serum glucose measurement (m ass/volume)Ordered By: Shaila Mcnair on 11-28-2024 Glucose [Mass/Vol] 102 mg/dL High 70-99 [facility] Serum or plasma alanine leal otransferase (ALT) measurementOrdered By: Shaila Mcnair on 11-28-2024 ALT [Catalytic activity/Vol] 27 U/L <47 [facility] Serum or plasma albumin ashley urement (mass/volume)Ordered By: Shaila Mcnair on 11-28-2024 Albumin [Mass/Vol] 4.4 g/dL 3.5-5.0 [facility] Serum or plasma albumin/glob ulin mass ratioOrdered By: Shaila Mcnair on 11-28-2024 Albumin/Globulin [Mass ratio] 1.7 {ratio} 0.9-2.4 [facility] Serum or plasma alkaline eliseo sphatase measurementOrdered By: Shaila Mcnair on 11-28-2024 ALP [Catalytic activity/Vol] 111 U/L 40-129 [facility] Serum or plasma calcium ashley urement (mass/volume)Ordered By: Shaial Mcnair on 11-28-2024 Calcium [Mass/Vol] 9.3 mg/dL 7.6-11.0 [facility] Serum or plasma cholesterol in HDL measurement (mass/volume)Ordered By: Shaila Mcnair on 11-28-2024 Cholesterol in HDL [Mass/Vol] 42 mg/dL >40 [facility] Comment on above: National Cholesterol Education Program (NCEP) guidelines:<40 mg/dL: Low HDL-cholesterol (major risk factor for CHD)>= 60 mg/dL: High HDL-cholesterol (negative risk factor for CHD)HDL-cholesterol is affected by a number of factors, e.g. smoking, exercise, hormones, sex and age. Serum or plasma cholesterol measurement (mass/volume)Ordered By: Shaila Mcnair on 11-28-2024 Cholesterol [Mass/Vol] 161 mg/dL <201 [facility] Comment on above: Cholesterol level, D esirable <200 mg/dLBorderline high cholesterol 200-239 mg/dLHigh cholesterol >=240 mg/dLRecommendations of the NCEP Adult Treatment Panel for the following risk-cutoff thresholds for the [place] population. Serum or plasma urea nitroge n measurement (mass/volume)Ordered By: Shaila Mcnair on 11-28-2024 Urea nitrogen [Mass/Vol] 17 mg/dL 4-19 [facility] Sodium levelOrdered By: Vita Mcnair on 11-28-2024 Sodium [Moles/Vol] 138 mmol/L 133-145 [facility] TSH DL <= 0.005 mIU/L QnOrde red By: Shaila Mcnair on 11-28-2024 TSH Qn 1.290 uIU/mL 0.300-4.200 [facility] Thyroid Stim Hormone (TSH)on 11-28-2024 TSH 1.290 uIU/mL Normal 0.300-4.200 [facility] Comment on above: Performed By: #### L 501.9520, L501.9910, L501.9985, L506.1001, L500.4050, L100.0100, L500.4100 #### [facility] [place], [address] Total proteinOrdered By: Ashley Mcnair on 11-28-2024 Protein [Mass/Vol] 6.9 g/dL 5.9-8.4 [facility] Triglycerides measurementOrd ered By: Shaila Mcnair on 11-28-2024 Triglyceride [Mass/Vol] 121 mg/dL <199 [facility] Comment on above: The drugs N-Acetylcy steine and Metamizole may falsely depress this assay. Normal range: <150 mg/dLBorderline High: 150-199 mg/dLHigh: 200-499 mg/dLVery High: >500 mg/dL Vitamin D,25 Hydroxyon 11-28 Vitamin D 25-OH 11.0 ng/mL Low 30-100 [facility] Comment on above: Result Comment: Dora min D Status Deficiency: <20 ng/mL (50nmol/L) Insufficiency: 20-30 ng/mL (50-75 nmol/L) Sufficiency: 30-100 ng/mL (75-250 nmol/L) Toxicity: >100 ng/mL (>250 nmol/L) Performed By: #### L 501.9520, L501.9910, L501.9985, L506.1001, L500.4050, L100.0100, L500.4100 #### [facility] [place], [address] White blood cell (WBC) count Ordered By: Shaila Mcnair on 11-28-2024 WBC (Bld) [#/Vol] 8.3 10*3/uL 4.4-11.0 [facility] MR/BMS.Bon 11-27-2024 MR/BMS.[facility] [address] [place] [address] OFFICE VISIT Date of Service: 11/27/24 MR#: [id number] Acct: [id number] Name: ELISABETH SERNA Rep #: [id number] : 1970 Provider: Dr. Shaila way MD Age/Sex: 54/M Location: [facility] Status: Signed Intake Vital Signs 08/25/21 08:06 [...] Intake Visit Reasons: Annual/Physical Chief Complaint: Annual/Physical Educational Sign Language Interpreter Required: No Accompanied by: Self Is patient in pain?: Yes (headache) Pain scale (1-10): 1 Allergies Seasonal Allergies: Uncoded Allergy (Verified 11/27/24 09:58) NEEDS FOLLOW-UP Medications ???Medication ???Instructions ???Recorded ???Confirmed ???Type amlodipine 10 mg tablet 10 mg PO DAILY #90 tabs 11/27/24 0 11/27/24 Rx cetirizine 10 mg tablet (Allergy 10 mg PO QDAY PRN 11/27/24 5 History Relief (cetirizine)) [facility] Medical History (Updated 11/27/24 @ 11:42 by [...] status: employed current occupation: [employer] Smoking Status: Never smoker alcohol intake: never [...] discussed colon (more content not included)... Normal [facility] 08-07-2022 [facility] Telephone (UCWSTR) ELISABETH SERNA ([id number]) 1970 M Date Time Provider Department 08/07/22 NICKIE UNDERWOOD [facility] During your visit today, we recorded the [...] Status:Closed by KWAME MIDDLETON on 08/07/22 [facility] CNOVon 08-06-2022 CNOV Office Visit (UCWSTR ) ELISABETH SERNA ([id number]) 1970 M Date Time Provider Department 08/06/22 3:30 PM JULIANO GARCÍA [facility] During your visit today, we recorded the [...] history is provided by the patient. No spanish interpreter/translator was used. Sinus Problem This is a [...] injury. No (more content not included)... Normal [facility] FLUABV + SARS-CoV-2 Pnl Resp ALL+prbon 08-06-2022 Influenza virus A and B RNA and SARS-CoV-2 (COVID-19) N gene panel ALL+probe (Resp) COVID 19 RESULT: Not detected The method used is RT-PCR or an equivalent NAAT method. Reference Range (the expected result in uninfected individuals): Not detected INFLUENZA A PCR: Not detected INFLUENZA B PCR: Not detected Normal [facility] Comment on above: Performed By: #### [id number] #### [facility] CLIA [id number] [address] [place] [address] [place] OF [place] ANKLE COMP MIN 3 [...] on File ----Signed By: Sylvia García [email or web address] ictated: 07/07/2018 1:26 AMSigned: 07/07/2018 1:29 AM Reported By: SYLVIA GARCÍA M.D. Signed By: SYLVIA GARCÍA M.D. [facility] Vital Signs Date Time Vital Sign Value Performing Clinician Lindai evany 11-27-2024 10:120400 Body height 172.[address] Shaila Mcnair MD Work Phone: [facility] 11-27-2024 10:12-0400 Body mass index (BMI) [Ratio] 51 kg/m2 Dr. Shaila Mcnair MD Work Phone: [facility] 11-27-2024 10:12-0400 Body temperature 98.6 [degF] Dr. Shaila Mcnair MD Work Phone: [facility] 11-27-2024 10:12-0400 Body weight 152.[address] hSaila Mcnair MD Work Phone: [facility] 11-27-2024 10:12-0400 Diastolic blood pressure 93 mm[Hg] Dr. Shaila Mcnair MD Work Phone: [facility] 11-27-2024 10:12-0400 Heart rate 69 /min Dr. Shaila Mcnair MD Work Phone: [facility] 11-27-2024 10:12-0400 Respiratory rate 16 /min Dr. Shaila Mcnair MD Work Phone: [facility] 11-27-2024 10:12-0400 SaO2% (BldA) [Mass fraction] 95 % Dr. Shaila Mcnair MD Work Phone: [facility] 11-27-2024 10:12-0400 Systolic blood pressure 147 mm[Hg] Dr. Shaila Mcnair MD Work Phone: [facility] 08-06-2022 15:24-0500 Body temperature 97.7 [degF] Juliano García CLAY MAKER.OVERHEAD DISTRIBUTION ENGINEER Work Phone: [facility] 08-06-2022 15:24-0500 Body weight 149.6 kg Juliano García CLAY MAKER.OVERHEAD DISTRIBUTION ENGINEER Work Phone: [facility] 08-06-2022 15:24-0500 Diastolic blood pressure 94 mm[Hg] Juliano García CLAY MAKER.OVERHEAD DISTRIBUTION ENGINEER Work Phone: [facility] 08-06-2022 15:24-0500 Heart rate 94 /min Juliano García CLAY MAKER.OVERHEAD DISTRIBUTION ENGINEER Work Phone: [facility] 08-06-2022 15:24-0500 Respiratory rate 20 /min Juliano García CLAY MAKER.OVERHEAD DISTRIBUTION ENGINEER Work Phone: [facility] 08-06-2022 15:24-0500 SaO2% (BldA) [Mass fraction] 98 % Juliano García CLAY MAKER.OVERHEAD DISTRIBUTION ENGINEER Work Phone: [facility] 08-06-2022 15:24-0500 Systolic blood pressure 132 mm[Hg] Juliano García CLAY MAKER.OVERHEAD DISTRIBUTION ENGINEER Work Phone: [facility] 10-21-2021 13:56-0400 Body temperature 97.6 [degF] Dr. Shaila Mcnair Work Phone: [facility] Work Phone: 10-21-2021 13:56-0400 Diastolic blood pressure 90 mm[Hg] Dr. Shaila Mcnair Work Phone: [facility] Work Phone: 10-21-2021 13:56-0400 Heart rate 115 /min Dr. Shaila Mcnair Work Phone: [facility] Work Phone: 10-21-2021 13:56-0400 Respiratory rate 16 /min Dr. Shaila Mcnair Work Phone: [facility] Work Phone: 10-21-2021 13:56-0400 SaO2% (BldA) [Mass fraction] 97 % Dr. Shaila Mcnair Work Phone: [facility] Work Phone: 10-21-2021 13:56-0400 Systolic blood pressure 160 mm[Hg] Dr. Shaila Mcnair Work Phone: [facility] Work Phone: 08-25-2021 07:06-0500 Body height 172.[address] Shaila Mcnair Work Phone: [facility] Work Phone: 08-25-2021 07:06-0500 Body mass index (BMI) [Ratio] 51.3 kg/m2 Dr. Shaila Mcnair Work Phone: [facility] Work Phone: 08-25-2021 07:06-0500 Body temperature 96.8 [degF] Dr. Shaila Mcnair Work Phone: [facility] Work Phone: 08-25-2021 07:06-0500 Body weight 153.[address] Shaila Mcnair Work Phone: [facility] Work Phone: 08-25-2021 07:06-0500 Diastolic blood pressure 90 mm[Hg] Dr. Shaila Mcnair Work Phone: [facility] Work Phone: 08-25-2021 07:06-0500 Heart rate 103 /min Dr. Shaila Mcnair Work Phone: [facility] Work Phone: 08-25-2021 07:06-0500 Respiratory rate 16 /min Dr. Shaila Mcnair Work Phone: [facility] Work Phone: 08-25-2021 07:06-0500 SaO2% (BldA) [Mass fraction] 96 % Dr. Shaila Mcnair Work Phone: [facility] Work Phone: 08-25-2021 07:06-0500 Systolic blood pressure 160 mm[Hg] Dr. Shaila Mcnair Work Phone: [facility] Work Phone: Encounters Encounter Date Encounter Type Care Provider Facility Start: 01-13-2025 ambulatory Shaila Mcnair Facility :[facility] Start: 12-02-2024 Encounter for genera l adult medical examination without abnormal findings Shaila Mcnair [facility] Start: 11-28-2024 End: 11-28-[address] Shaila Mcnair MD Work Phone: [facility] Work Phone: Start: 11-28-2024 End: 11-28-[address] Shaila Mcnair MD -Laboratory [facility] Start: 11-27-[address] Trixie Mcnair MD Work Phone: [facility] Start: 11-27-2024 End: 11-27-[address] Shaila Mcnair MD -[facility] Work Phone: Start: 11-27-2024 End: 11-27-[address] Shaila Mcnair MD [facility] Start: 11-27-2024 End: 11-28-[address] Shaila Mcnair MD Work Phone: [facility] Work Phone: Start: 08-07-2022 Telephone encounter Nickie KOTHARI Work Phone: [facility] Comment on above: Results Start: 08-06-2022 End: 08-06-2022 ambulatory Facility:[facility] Start: 08-06-2022 End: 08-06-2022 Patient encounter procedure Juliano García CLAY MAKER.OVERHEAD DISTRIBUTION ENGINEER Work Phone: [facility] Comment on above: URI, acute (Primary Dx); Sinusitis, unspecified chronicity, unspecified location Start: 12-09-2021 End: 12-09-[address] Shaila Mcnair Work Phone: [facility] Start: 10-21-2021 End: 10-21-[address] Shaila Mcnair Work Phone: [facility] Start: 08-25-2021 End: 08-25-[address] Shaila Mcnair Work Phone: [facility] Start: 07-06-2018 Patient encounter procedure Myrna Fatima PAC Facility:[facility] Start: 08-15-2016 Patient encounter status Jacque García CLAY MAKER.OVERHEAD DISTRIBUTION ENGINEER Work Phone: [facility] Work Phone: Procedures Date Procedure Procedure [...] Activity Detail Author Start: 11-27-2024 Patient referral [facility] Work Phone: Start: 05-27-2024 Urine microalbumin profile DTAP,TDAP,TD (2 - Td or Tdap) [facility] Start: 08-06-2022 End: 08-20-2022 Influenza virus A and B RNA and SARS-CoV-2 (COVID-19) N gene panel - Respiratory specimen by ALL with probe detection [facility] Work Phone: Comment on above: Expected: 08/06/2022 , Expires: 08/20/2022 Start: 07-02-2022 DEPRESSION ASSESSMENT DEPRESSION ASS ESSMENT [facility] Start: 08-25-2021 Patient referral [facility] Work Phone: Start: 08-15-2021 LIPID SCREEN LIPID SCREEN [facility] Start: 05-27-2021 DIABETES SCREEN DIABETES SCREEN [facility] Start: 11-11-2020 COVID-19 VACCINE (3 - Booster for Pfizer series) COVID-19 VACCINE (3 - Booster for Pfizer series) [facility] Start: 10-02-2019 SHINGRIX VACCINE (1 of 2) SHINGRIX VACCINE (1 of 2) [facility] Start: 05-27-2019 ANNUAL PCP TEAM FRONT DESK ASSISTANT XOCHITL DISEASE VISIT ANNUAL PCP TEAM CHRONIC DISEASE VISIT [facility] Start: 2014 COLOGUARD (FIT-DNA) COLOGUARD (FIT-D NA) [facility] Start: 2014 Colonoscopy COLONOSCOPY [facility] Start: 2014 COLORECTAL CANCER SCREENING COLORECTAL CANCER SCREENING [facility] Start: [address] COLONOGRAPHY [facility] Start: 2014 FECAL OCCULT BLOOD FECAL OCCULT BLOO D [facility] Start: 2014 SIGMOIDOSCOPY SIGMOIDOSCOPY [facility] Start: 10-02-1987 BP CONTROLLED (<130/80) BP CONTROLLE D (<130/80) [facility] Start: 10-02-1987 HEPATITIS C SCREENING HEPATITIS C SC REENING [facility] Start: 10-02-1987 HIV SCREENING HIV SCREENING [facility] Start: 1970 HEPATITIS B (1 of 3 - 3-dose series) HEPATITIS B (1 of 3 - 3-dose series) [facility] CBC W Auto Different ial panel - Blood [facility] Colonoscopy [facility] Comprehensive metabo lic 1999 panel - Serum or Plasma [facility] Hemoglobin A1c/Hemoglobin.total in Blood [facility] Lipid 1996 panel - Serum or Plasma [facility] Patient referral [facility] Work Phone: Prostate specific antigen measurement [facility] Thyroid stimulating hormone measurement [facility] Vitamin D, 25-hydrox y measurement [facility] Immunizations Immunization Date Immunization Notes Care Provider May calvillo 09-16-2020 Covid (Pfizer) Dr. Shaila galeano Work Phone: [facility] 08-26-2020 Covid (Pfizer) Dr. Shaila galeano Work Phone: [facility] 04-08-2018 influenza, injectabl e, quadrivalent, contains preservative Juliano García CLAY MAKER.OVERHEAD DISTRIBUTION ENGINEER Work Phone: [facility] Work Phone: 05-27-2014 influenza, seasonal, injectable Juliano García CLAY MAKER.OVERHEAD DISTRIBUTION ENGINEER Work Phone: [facility] Work Phone: 05-27-2014 tetanus toxoid, redu ricardo diphtheria toxoid, and acellular pertussis vaccine, adsorbed Juliano García CLAY MAKER.OVERHEAD DISTRIBUTION ENGINEER Work Phone: [facility] Work Phone: Payers Date Payer Category Payer Unknown [id number] 2024 Self-pay [id number] 2018 Unknown [id number] Private Health Insurance [id number] Unknown [id number] Unknown [id number] Unknown [id number] Unknown [id number] [id number] [id number] Unknown [id number] Unknown [id number] Social History Date Type Detail Facility Start: 10-21-2021 Tobacco smoking stat us ARIS Unknown if ever smoked [facility] Work Phone: Start: 06-23-2019 Non-smoker [facility] Start: 1970 Sex Assigned At Male [facility] Start: 08-14-2014 End: 11-26-2024 Tobacco smoking status NHIS Never smoked tobacco [facility] Start: 08-14-2014 Tobacco use and exposure Smokeless tobacco non-user [facility] Start: 08-06-2022 Alcohol intake Current non-dr cigarette catcher of alcohol (finding) [facility] Start: 1970 Sex Assigned At Not on file [facility] Progress note 11-27-2024 Note Date & Type Note Facility 11-27-2024 Progress note Note Date/Time November 27, 2024 11:00am [facility] [address] [place], [place] [address] OFFICE VISIT Date of Service: 11/27/24 MR#: [id number] Acct: [id number] Name: ELISABETH SERNA Rep #: [id number] : 1970 Provider: Dr. Vita Mcnair MD Age/Sex: 54/M Location: [facility] [place] Status: Signed Intake Vital Signs 08/25/21 08:06 [...] Intake Visit Reasons: Annual/Physical Chief Complaint: Annual/Physical Educational Sign Language Interpreter Required: No Accompanied by: Self Is patient in pain?: Yes (headache) Pain scale (1-10): 1 Allergies Seasonal Allergies: Uncoded Allergy (Verified 11/27/24 09:58) NEEDS FOLLOW-UP Medications ?Medication ?Instructions ?Recorded ?Confirmed ?Type amlodipine 10 mg tablet 10 mg PO DAILY #90 tabs 10/3111/27/24 Rx cetirizine 10 mg tablet (Allergy 10 mg PO QDAY PRN 11/27/24 History Relief (cetirizine)) [facility] Medical History (Updated 11/27/24 @ 11:42 by [...] status: employed current occupation: [employer] Smoking Status: Never smoker alcohol intake: never [...] Cosigner Signature: Date (if applicable) CC: ~ [facility] Work Phone: Evaluation note 11-27-2024 Note Date [...] 9:56am Sleep apnea acute November 27 9:56am [facility] Work Phone: Progress note 11-27-2024 Note Date & Type Note Facility 11-27-2024 Progress note [facility] Note 08-07-2022 Telephone Encounter - Kwame Middleton [...] covid and flu. documented in this encounter [facility] Progress note 08-06-2022 Note Date & Type Note Facility 08-06-2022 Note HNO ID: [id number] Author: Juliano García APRN.OVERHEAD DISTRIBUTION ENGINEER Service: ? Author Type: Nurse Practitioner Type: [...] history is provided by the patient. No spanish interpreter/translator was used. Sinus Problem This is a [...] Refill: Capillary r (more content not included)... [facility] History of Present illness Narrative 08-06-2022 Juliano García, SOPHIA.OVERHEAD DISTRIBUTION ENGINEER - 08/06/2022 3:21 PM EST Note Date & Type Note Facility 08-06-2022 History of Presen t illness Narrative This note was created using [employer]. Subjective Elisabeth Serna is a 51 year [...] history is provided by the patient. No spanish interpreter/translator was used. Sinus Problem This is a [...] - COVID WITH FLUA+B, ROUTINE Juliano García APRN.OVERHEAD DISTRIBUTION ENGINEER documented in this encounter [facility] Evaluation note Note Date & Type Note Facility Evaluation note Diagnosis Onset Date BMI 45.0-49.9, adult acute Essential hypertension acute CAROL (obstructive sleep apnea) acute Sleep apnea acute Vitamin D deficiency acute Chronic cough chronic Acute sinusitis acute [facility] Work Phone: Evaluation note Note Date & Type Note Facility Evaluation note Diagnosis URI, acute- Primary Acute upper respiratory infections of unspecified site Sinusitis, unspecified chronicity, unspecified location documented in this encounter [facility] Discharge instructions Note Date & Type Note Facility Hospital Discharge instructions [facility] Work Phone: Hospital Discharge instructions Note Date & Type Note Facility Hospital Discharge instructions Ambulatory OrdersDermatology Location: None SelectedGeneral Surgery Location: None [facility] Work Phone: Summary Purpose Family History No Family History Records Found Relationship Condition Age at Onset Recorded Date/T mendy Not Specified Family history not k nown due to adoption Unknown Advance Directives No Advanced Directives Records Found Advance Directive Response Recorded Date/ Time Living Will No June 23 4:24pm Power of Sea Kayaking Guide No June 23, 2019 4:24pm Chief Complaint [...] section and content) DATE CREATED AUTHOR 07/09/2018 [facility] DATE CREATED AUTHOR AUTHOR'S ORGANIZ ATION 08/07/2022 [facility] DATE CREATED AUTHOR AUTHOR'S ORGANIZ ATION 01/03/2025 [facility] Goals (unrecognized section and content) Goals [...] or prosecute any alcohol or drug abuse patient.[facility] the event this information is protected by the Federal Confidentiality of Alcohol and Drug Abuse Patient Records regulations: The Federal rules restrict any use of the information to criminally investigate or prosecute any alcohol or drug abuse patient.[facility] Reason for Visit (unrecogniz ed section [...] BE BASED ON THE PRIMARY CLINICAL RECORDS. [employer] provides no warranty or guarantee of the accuracy or completeness of information in this document.
[2025-01-13] MEDS: Lactated Ringers 1,000 ML 15 ML IV (08:36)
--- NOTE | 2025-01-13 08:45 | PCM.PRE.AN2 ---
ASA Classification* ASA Classification ASA Classification: 3 Assessment & Plan Anesthesia* Anesthesia Assessment Anesthesia Assessment: Discussed sedation and/or anesthesia options, risks, benefits, and alternatives with patient/parents/legal guardian/POA. Questions invited. The patient/parents/legal guardian/POA seems to understand and agrees to proceed with anesthesia plan. Reviewed the physical assessment, medical history, allergy history and patient home medications list prior to surgery/procedure/anesthetic and documented any changes. Performed airway and anesthesia risk assessments. Anesthesia Type Anesthesia Type: MAC History Source History Obtained from:: Patient and Chart Anesthesia Focused Assessment* Temperature: 98.6 F Pulse Rate: 71 Blood Pressure: 171/97 Respiratory Rate: 18 Pulse Ox: 100 Oxygen Delivery Method: Room Air Airway Assessment Mouth opens: >3 cm Mallampati Score: III Teeth Condition: Chipped/Broken (Chipped tooth #24.) Neck Range of motion (ROM): Limited ROM (Somewhat Decreased) Labs Anesthesia Preop lab: CBC WBC 8.3 K/mm3 (4.4-11.0) 11/28/24 09:08 11/28/24 RBC 4.88 M/mm3 (4.6-6.2) 11/28/24 09:08 11/28/24 Hgb 14.6 g/dL (13.0-16.5) 11/28/24 09:08 11/28/24 Hct 42.4 % (40-54) 11/28/24 09:08 11/28/24 Plt Count 243 K/mm3 (150-450) 11/28/24 09:08 11/28/24 CHEMISTRY Potassium 4.2 mmol/L (3.3-5.1) 11/28/24 09:08 11/28/24 Sodium 138 mmol/L (133-145) 11/28/24 09:08 11/28/24 BUN 17 mg/dL (4-19) 11/28/24 09:08 11/28/24 Creatinine 0.95 mg/dL (0.70-1.20) 11/28/24 09:08 11/28/24 Glucose 102 mg/dL (70-99) H 11/28/24 09:08 11/28/24 TSH 1.290 uIU/mL (0.300-4.200) 11/28/24 09:08 11/28/24 COAG Pre-Assessment Diagnosis/Proposed Procedure Planned Operative Procedure(s): CSCOPE OA Anesthesia History Anesthesia History - manager corporate: Anesthesia History - manager corporate Hx Hospitalization No 01/09/25 11:48 Any Problems With Anesthesia No 01/09/25 11:48 Cholinesterase deficiency No 01/09/25 11:48 You/Your Family Experience No: ADOPTED 01/09/25 11:48 fever (hyperthermia) with Relationship Recent Exposure to Contagious No 01/13/25 08:33 Disease Does patient have nerve No 01/09/25 11:48 stimulator Patient instructed to have device shut off --Does patient have Pacemaker No 01/13/25 08:33 or ICD? When Was Last Pacemaker Check QUESTION #4 FULL TEXT: You/Your Family Experience fever (hyperthermia) with Anesthesia Last Oral Intake Last Oral intake: Last Oral Intake NPO since 07:15 01/13/25 08:33 Meds taken in AM with sips of Yes 01/13/25 08:33 water? Meds patient instructed to amlodipine 01/13/25 08:33 take am of surgery Any additional information?: Yes NPO since: :15 (Patient took his amlodipine at 7:15 AM.) Meds taken in AM with sips of water?: Yes PONV PONV - manager corporate: PONV - manager corporate Female No 01/09/25 11:48 HX of Motion Sickness No 01/09/25 11:48 HX of N/V After Surgery No 01/09/25 11:48 Non-Smoker Yes 01/09/25 11:48 Duration of Surgery greater No 01/09/25 11:48 than 60 minutes Number of Risk Factors 1 01/09/25 11:48 PONV Score Low Risk 01/09/25 11:48 Height & Weight Height & Weight: Anesthesia: Height & Weight Height 5 ft 8 in 01/13/25 08:33 Weight: 198 kg 01/13/25 08:33 Body Mass Index (BMI) 66.4 01/13/25 08:33 Respiratory Assessment Respiratory Assessment - manager corporate: Respiratory Tract Infection Hx - manager corporate Hx Respiratory Tract Infection No 01/09/25 11:48 STOP Sleep Apnea STOP Sleep Apnea - manager corporate: STOP Sleep Apnea - manager corporate Hx Hypertension Yes: CONTROLLED WITH MED 01/09/25 11:48 Hx Sleep Apnea Yes 01/09/25 11:48 CPAP Yes 01/09/25 11:48 BIPAP No 01/09/25 11:48 Do you snore loudly (louder than talking or can be heard Do you often feel tired/ fatigued/ sleepy during daytime? Has anyone observed you stop breathing during sleep? STOP Results Positive 01/09/25 11:48 QUESTION #5 FULL TEXT : Do you snore loudly (louder than talking or can be heard through closed doors)? 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 Specify any problems Hx of Preganancy in last 3 N/A 01/09/25 11:48 Months Nurse Filling Out Transfusion DSCHRIBER 01/09/25 11:48 & Questions: Date: 01/09/25 01/09/25 11:48 Time: 11:49 01/09/25 11:48 Patient unable to answer at this time (ie. confused, unrespo /Reproduction History /Reproductive History - manager corporate: /Reproductive Hx- manager corporate Hx Now No 01/09/25 11:48 Gestational Age (in weeks): EDC: Hx Hx Para Hx Section SAB No 01/09/25 11:48 Active Medications Active Medications: Current Medications Generic Name Dose Route Start Last Admin Trade Name Freq PRN Reason Stop Dose Admin Lactated Ringer's 1,000 mls @ 15 mls/hr 01/13/25 08:15 01/13/25 08:36 IV 15 mls/hr .Q48H NAEL Administration PFSH Medical History Wears glasses Arthritis Restless legs CPAP (continuous positive airway pressure) dependence Asthma Shortness of breath on exertion Leg cramps History of edema Colon cancer screening HTN (hypertension) Home Medications ?Medication ?Instructions ?Recorded ?Last Taken ?Type amlodipine 10 mg tablet 10 mg PO DAILY #90 tabs 11/27/24 01/13/25 07:15 Rx cetirizine 10 mg tablet (Allergy 10 mg PO QDAY PRN allergy symptoms 11/27/24 Unknown History Relief (cetirizine)) cholecalciferol (vitamin D3) 25 25 mcg PO DAILY 01/09/25 Unknown History mcg (1,000 unit) capsule (Vitamin D3) Allergy/AdvReac Type Severity Reaction Status Date / Time Seasonal Allergies: Uncoded Allergy NEEDS Verified 01/13/25 08:32 FOLLOW-UP Family History Other Family history not known due to adoption Surgical History Hx of inguinal hernia repair History of mandibular surgery Hx of endoscopic sinus surgery H/O arthroscopic knee surgery Social History household members: spouse and children housing: house number of children: 2 current occupational status: employed current occupation: [employer] Smoking Status: Never smoker alcohol intake: never substance use type: does not use what type of physical activity do you participate in: walking frequency: daily do you feel safe at home: Yes Review of Systems (Anesthesia) ROS Narrative System reviewed and no additional complaints, except as documented.
--- NOTE | 2025-01-13 08:45 | PCM.PRE.AN2 ---
ASA Classification* ASA Classification ASA Classification: 3 Assessment & Plan Anesthesia* Anesthesia Assessment Anesthesia Assessment: Discussed sedation and/or anesthesia options, risks, benefits, and alternatives with patient/parents/legal guardian/POA. Questions invited. The patient/parents/legal guardian/POA seems to understand and agrees to proceed with anesthesia plan. Reviewed the physical assessment, medical history, allergy history and patient home medications list prior to surgery/procedure/anesthetic and documented any changes. Performed airway and anesthesia risk assessments. Anesthesia Type Anesthesia Type: MAC History Source History Obtained from:: Patient and Chart Anesthesia Focused Assessment* Temperature: 98.6 F Pulse Rate: 71 Blood Pressure: 171/97 Respiratory Rate: 18 Pulse Ox: 100 Oxygen Delivery Method: Room Air Airway Assessment Mouth opens: >3 cm Mallampati Score: III Teeth Condition: Chipped/Broken (Chipped tooth #24.) Neck Range of motion (ROM): Limited ROM (Somewhat Decreased) Labs Anesthesia Preop lab: CBC WBC 8.3 K/mm3 (4.4-11.0) 11/28/24 09:08 11/28/24 RBC 4.88 M/mm3 (4.6-6.2) 11/28/24 09:08 11/28/24 Hgb 14.6 g/dL (13.0-16.5) 11/28/24 09:08 11/28/24 Hct 42.4 % (40-54) 11/28/24 09:08 11/28/24 Plt Count 243 K/mm3 (150-450) 11/28/24 09:08 11/28/24 CHEMISTRY Potassium 4.2 mmol/L (3.3-5.1) 11/28/24 09:08 11/28/24 Sodium 138 mmol/L (133-145) 11/28/24 09:08 11/28/24 BUN 17 mg/dL (4-19) 11/28/24 09:08 11/28/24 Creatinine 0.95 mg/dL (0.70-1.20) 11/28/24 09:08 11/28/24 Glucose 102 mg/dL (70-99) H 11/28/24 09:08 11/28/24 TSH 1.290 uIU/mL (0.300-4.200) 11/28/24 09:08 11/28/24 COAG Pre-Assessment Diagnosis/Proposed Procedure Planned Operative Procedure(s): CSCOPE OA Anesthesia History 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 When Was Last Pacemaker Check QUESTION #4 FULL TEXT: You/Your Family Experience fever (hyperthermia) with Anesthesia Last Oral Intake Last Oral intake: Last Oral Intake NPO since 07:15 01/13/25 08:33 Meds taken in AM with sips of Yes 01/13/25 08:33 water? 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 Female No 01/09/25 11:48 HX of Motion Sickness No 01/09/25 11:48 HX of N/V After Surgery No 01/09/25 11:48 Non-Smoker Yes 01/09/25 11:48 Duration of Surgery greater No 01/09/25 11:48 than 60 minutes Number of Risk Factors 1 01/09/25 11:48 PONV Score Low Risk 01/09/25 11:48 Height & Weight Height & Weight: Anesthesia: Height & Weight Height 5 ft 8 in 01/13/25 08:33 Weight: 198 kg 01/13/25 08:33 Body Mass Index (BMI) 66.4 01/13/25 08:33 Respiratory Assessment Respiratory Assessment - sign painter apprentice: Respiratory Tract Infection Hx - sign painter apprentice Hx Respiratory Tract Infection No 01/09/25 11:48 STOP Sleep Apnea STOP Sleep Apnea - sign painter apprentice: STOP Sleep Apnea - sign painter apprentice Hx Hypertension Yes: CONTROLLED WITH MED 01/09/25 11:48 Hx Sleep Apnea Yes 01/09/25 11:48 CPAP Yes 01/09/25 11:48 BIPAP No 01/09/25 11:48 Do you snore loudly (louder than talking or can be heard Do you often feel tired/ fatigued/ sleepy during daytime? Has anyone observed you stop breathing during sleep? STOP Results Positive 01/09/25 11:48 QUESTION #5 FULL TEXT : Do you snore loudly (louder than talking or can be heard through closed doors)? 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 Specify any problems Hx of Preganancy in last 3 N/A 01/09/25 11:48 Months Nurse Filling Out Transfusion DSCHRIBER 01/09/25 11:48 & Questions: Date: 01/09/25 01/09/25 11:48 Time: 11:49 01/09/25 11:48 Patient unable to answer at this time (ie. confused, unrespo /Reproduction History /Reproductive History - sign painter apprentice: /Reproductive Hx- sign painter apprentice Hx Now No 01/09/25 11:48 Gestational Age (in weeks): EDC: Hx Hx Para Hx Section SAB No 01/09/25 11:48 Active Medications Active Medications: Current Medications Generic Name Dose Route Start Last Admin Trade Name Freq PRN Reason Stop Dose Admin Lactated Ringer's 1,000 mls @ 15 mls/hr 01/13/25 08:15 01/13/25 08:36 IV 15 mls/hr .Q48H NAEL Administration PFSH Medical History Wears glasses Arthritis Restless legs CPAP (continuous positive airway pressure) dependence Asthma Shortness of breath on exertion Leg cramps History of edema Colon cancer screening HTN (hypertension) Home Medications ?Medication ?Instructions ?Recorded ?Last Taken ?Type amlodipine 10 mg tablet 10 mg PO DAILY #90 tabs 11/27/24 01/13/25 07:15 Rx cetirizine 10 mg tablet (Allergy 10 mg PO QDAY PRN allergy symptoms 11/27/24 Unknown History Relief (cetirizine)) cholecalciferol (vitamin D3) 25 25 mcg PO DAILY 01/09/25 Unknown History mcg (1,000 unit) capsule (Vitamin D3) Allergy/AdvReac Type Severity Reaction Status Date / Time Seasonal Allergies: Uncoded Allergy NEEDS Verified 01/13/25 08:32 FOLLOW-UP Family History Other Family history not known due to adoption Surgical History Hx of inguinal hernia repair History of mandibular surgery Hx of endoscopic sinus surgery H/O arthroscopic knee surgery Social History household members: spouse and children housing: house number of children: 2 current occupational status: employed current occupation: [employer] Smoking Status: Never smoker alcohol intake: never substance use type: does not use what type of physical activity do you participate in: walking frequency: daily do you feel safe at home: Yes Review of Systems (Anesthesia) ROS Narrative System reviewed and no additional complaints, except as documented.
--- NOTE | 2025-01-13 09:00 | COLBX_PTH ---
PATIENT: ELISABETH SERNA LOC: EN U#:[id number] AGE/SX: 54/M ROOM: RE01/13/[address]: Dr. Elkin Starks MD : 1970 BED: DIS: 01/13/2025 SPEC #: [id number] RECD: 01/13/25 11:08 STATUS: NANDO PAYAN #: [id number] CIRA: 01/13/25 09:[address]: Elkin Starks DEPT: SURGICAL PATHOLOGY RECD BY: Landen Patel ENTERED: 01/13/25 14:21 SP TYPE: COLON BX OTHR DR: Dr. Shaila Mcnair MD Tissues: A - Sigmoid colon biopsy B - Cecum, NOS Procedures: Surgery Specimen Level IV HEADER OPERATION: Colonoscopy with biopsy PRE-OP DIAGNOSIS: Colon cancer screening TISSUE SUBMITTED: A- Sigmoid colon polyp biopsy, B- Cecum polyp biopsy MICROSCOPIC DIAGNOSIS A. Colon, sigmoid colon polyp, biopsy: * Tubular adenoma B. Colon, cecum, polyp, biopsy: * Tubular adenoma MICROSCOPIC DESCRIPTION Slides are reviewed. GROSS DESCRIPTION A. Received in fixative is one container labeled with the patient's name and designated Sigmoid colon polyp biopsy. The specimen consists of is a 0.4 cm fisher soft tissue fragment and a 1.4 x 1.3 x 1.1 cm red and granular polypoid tissue fragment; the resection margin is inked black and the larger fragment is serially sectioned. Entirely submitted in 2 cassettes as follows: A1: Smaller tissue fragmentA2-A3: Larger fragment, serially sectioned B. Received in fixative is one container labeled with the patient's name and designated Cecum polyp biopsy. The specimen consists of is a 0.6 x 0.6 x 0.4 cm fisher to red, granular polypoid tissue fragment devoid of an identifiable resection margin. Specimen is bisected and entirely submitted in 1 cassette. [place] 01/13/2025 CPT:88014i9
--- NOTE | 2025-01-13 09:00 | COLBX_PTH ---
PATIENT: ELISABETH SERNA LOC: EN U#:[id number] AGE/SX: 54/M ROOM: RE01/13/[address]: Dr. Elkin Starks MD : 1970 BED: DIS: 01/13/2025 SPEC #: [id number] RECD: 01/13/25 11:08 STATUS: NANDO PAYAN #: [id number] CIRA: 01/13/25 09:[address]: Elkin Starks DEPT: SURGICAL PATHOLOGY RECD BY: Landen Patel ENTERED: 01/13/25 14:21 SP TYPE: COLON BX OTHR DR: Dr. Shaila Mcnair MD Tissues: A - Sigmoid colon biopsy B - Cecum, NOS Procedures: Surgery Specimen Level IV HEADER OPERATION: Colonoscopy with biopsy PRE-OP DIAGNOSIS: Colon cancer screening TISSUE SUBMITTED: A- Sigmoid colon polyp biopsy, B- Cecum polyp biopsy MICROSCOPIC DIAGNOSIS A. Colon, sigmoid colon polyp, biopsy: * Tubular adenoma B. Colon, cecum, polyp, biopsy: * Tubular adenoma MICROSCOPIC DESCRIPTION Slides are reviewed. GROSS DESCRIPTION A. Received in fixative is one container labeled with the patient's name and designated Sigmoid colon polyp biopsy. The specimen consists of is a 0.4 cm fisher soft tissue fragment and a 1.4 x 1.3 x 1.1 cm red and granular polypoid tissue fragment; the resection margin is inked black and the larger fragment is serially sectioned. Entirely submitted in 2 cassettes as follows: A1: Smaller tissue fragmentA2-A3: Larger fragment, serially sectioned B. Received in fixative is one container labeled with the patient's name and designated Cecum polyp biopsy. The specimen consists of is a 0.6 x 0.6 x 0.4 cm fisher to red, granular polypoid tissue fragment devoid of an identifiable resection margin. Specimen is bisected and entirely submitted in 1 cassette. [place] 01/13/2025 CPT:29540p0
--- NOTE | 2025-01-13 09:01 | H&P.OPEN ---
HPI - General HPI Narrative ELISABETH SERNA, is a 54 M who presents for screening colonoscopy. Patient has never had a colonoscopy in the past. He denies abdominal pain or blood in the stool. He has no family history of colon cancer. [facility] Medical History Wears glasses Arthritis Restless legs CPAP (continuous positive airway pressure) dependence Asthma Shortness of breath on exertion Leg cramps History of edema Colon cancer screening HTN (hypertension) Home Medications ?Medication ?Instructions ?Recorded ?Last Taken ?Type amlodipine 10 mg tablet 10 mg PO DAILY #90 tabs 11/27/24 01/13/25 07:15 Rx cetirizine 10 mg tablet (Allergy 10 mg PO QDAY PRN allergy symptoms 11/27/24 Unknown History Relief (cetirizine)) cholecalciferol (vitamin D3) 25 25 mcg PO DAILY 01/09/25 Unknown History mcg (1,000 unit) capsule (Vitamin D3) Allergy/AdvReac Type Severity Reaction Status Date / Time Seasonal Allergies: Uncoded Allergy NEEDS Verified 01/13/25 08:32 FOLLOW-UP Family History Other Family history not known due to adoption Surgical History Hx of inguinal hernia repair History of mandibular surgery Hx of endoscopic sinus surgery H/O arthroscopic knee surgery Social History household members: spouse and children housing: house number of children: 2 current occupational status: employed current occupation: [employer] Smoking Status: Never smoker alcohol intake: never substance use type: does not use what type of physical activity do you participate in: walking frequency: daily do you feel safe at home: Yes Past Medical/Surgical History Planned Operation Planned Operative Procedure(s): CSCOPE OA Previous Hospitalizations/Surgeries HX Hospitalizations: No Any Problems With Anesthesia: No You/Your Family Experience Fever (Hyperthermia) With Anes: No (ADOPTED) Cholinesterase deficiency: No Cardiovascular Hx Hypertension: Yes (CONTROLLED WITH MED) Respiratory Hx Sleep Apnea: Yes CPAP: Yes BIPAP: No Hx Respiratory Tract Infection/Cold (presently): No Result (for STOP score): Positive Smoking Status: Never smoker Neurological Does patient have nerve stimulator: No Reproduction : No Psycho/Social Hx Substance Use: No Hx Alcohol Use: No Miscellaneous Recent Exposure to Contagious Disease: No Allergies Seasonal Allergies: Uncoded Allergy (Verified 01/13/25 08:32) NEEDS FOLLOW-UP Discharge Is Pt Admitted From a [facility], or a Intermediate: No After D/C, Where Do you Plan to Go: Return Home Vital Signs Vital Signs Vital Signs: 01/13/25 08:33 01/13/25 08:33 01/13/25 08:52 Temperature 98.6 F 98.6 F Temperature Source Temporal Pulse Rate 71 71 Respiratory Rate 18 18 Respiratory Pattern Normal Blood Pressure 171/97 H 171/97 H Blood Pressure Mean 121 Blood Pressure Source Monitor Blood Pressure Position Sitting Blood Pressure Location Left Forearm Pulse Ox 100 100 Oxygen Delivery Method Room Air Room Air Weight Weight: 436 lb 8.244 oz Body Mass Index (BMI) 66.4 Physical Exam Const alert and oriented x3 HEENT normocephalic Eyes PERRL Resp normal respiratory effort and normal air movement Cardio regular rate and regular rhythm GI soft to palpation, non-tender and non-distended Extremity normal to inspection Assessment & Plan Assessment/Plan (1) Colon cancer screening: PLAN: I explained endoscopy in detail to the patient. I explained the risks including but not limited to stroke or heart attack with anesthesia, perforation of the GI tract, bleeding, infection. I explained that any of these could necessitate further emergency surgery. The patient understands and all questions were answered sufficiently. The patient wishes to proceed with procedure. Elkin Starks MD Pager: [facility] [address] [place] [address], [address] [place] [address] Office: Surgery Risks - Colonoscopy Risks Include but are not Limited To: Risks include but are not limited to: Bleeding, perforation requiring further surgery, inability to complete colonoscopy requiring barium enema.
--- NOTE | 2025-01-13 09:01 | H&P.OPEN ---
HPI - General HPI Narrative ELISABETH SERNA, is a 54 M who presents for screening colonoscopy. Patient has never had a colonoscopy in the past. He denies abdominal pain or blood in the stool. He has no family history of colon cancer. [facility] Medical History Wears glasses Arthritis Restless legs CPAP (continuous positive airway pressure) dependence Asthma Shortness of breath on exertion Leg cramps History of edema Colon cancer screening HTN (hypertension) Home Medications ?Medication ?Instructions ?Recorded ?Last Taken ?Type amlodipine 10 mg tablet 10 mg PO DAILY #90 tabs 11/27/24 01/13/25 07:15 Rx cetirizine 10 mg tablet (Allergy 10 mg PO QDAY PRN allergy symptoms 11/27/24 Unknown History Relief (cetirizine)) cholecalciferol (vitamin D3) 25 25 mcg PO DAILY 01/09/25 Unknown History mcg (1,000 unit) capsule (Vitamin D3) Allergy/AdvReac Type Severity Reaction Status Date / Time Seasonal Allergies: Uncoded Allergy NEEDS Verified 01/13/25 08:32 FOLLOW-UP Family History Other Family history not known due to adoption Surgical History Hx of inguinal hernia repair History of mandibular surgery Hx of endoscopic sinus surgery H/O arthroscopic knee surgery Social History household members: spouse and children housing: house number of children: 2 current occupational status: employed current occupation: [employer] Smoking Status: Never smoker alcohol intake: never substance use type: does not use what type of physical activity do you participate in: walking frequency: daily do you feel safe at home: Yes Past Medical/Surgical History Planned Operation Planned Operative Procedure(s): CSCOPE OA Previous Hospitalizations/Surgeries HX Hospitalizations: No Any Problems With Anesthesia: No You/Your Family Experience Fever (Hyperthermia) With Anes: No (ADOPTED) Cholinesterase deficiency: No Cardiovascular Hx Hypertension: Yes (CONTROLLED WITH MED) Respiratory Hx Sleep Apnea: Yes CPAP: Yes BIPAP: No Hx Respiratory Tract Infection/Cold (presently): No Result (for STOP score): Positive Smoking Status: Never smoker Neurological Does patient have nerve stimulator: No Reproduction : No Psycho/Social Hx Substance Use: No Hx Alcohol Use: No Miscellaneous Recent Exposure to Contagious Disease: No Allergies Seasonal Allergies: Uncoded Allergy (Verified 01/13/25 08:32) NEEDS FOLLOW-UP Discharge Is Pt Admitted From a [facility], or a Jail: No After D/C, Where Do you Plan to Go: Return Home Vital Signs Vital Signs Vital Signs: 01/13/25 08:33 01/13/25 08:33 01/13/25 08:52 Temperature 98.6 F 98.6 F Temperature Source Temporal Pulse Rate 71 71 Respiratory Rate 18 18 Respiratory Pattern Normal Blood Pressure 171/97 H 171/97 H Blood Pressure Mean 121 Blood Pressure Source Monitor Blood Pressure Position Sitting Blood Pressure Location Left Forearm Pulse Ox 100 100 Oxygen Delivery Method Room Air Room Air Weight Weight: 436 lb 8.244 oz Body Mass Index (BMI) 66.4 Physical Exam Const alert and oriented x3 HEENT normocephalic Eyes PERRL Resp normal respiratory effort and normal air movement Cardio regular rate and regular rhythm GI soft to palpation, non-tender and non-distended Extremity normal to inspection Assessment & Plan Assessment/Plan (1) Colon cancer screening: PLAN: I explained endoscopy in detail to the patient. I explained the risks including but not limited to stroke or heart attack with anesthesia, perforation of the GI tract, bleeding, infection. I explained that any of these could necessitate further emergency surgery. The patient understands and all questions were answered sufficiently. The patient wishes to proceed with procedure. Elkin Starks MD Pager: [facility] [address] [place] [address], [address] [place] [address] Office: Surgery Risks - Colonoscopy Risks Include but are not Limited To: Risks include but are not limited to: Bleeding, perforation requiring further surgery, inability to complete colonoscopy requiring barium enema.
--- NOTE | 2025-01-13 09:38 | OP.CCLET_ITS ---
01/13/2025 Shaila Mcnair [facility] [address] [place] [address] Re : Colonoscopy procedure for Jason Grider Dear Dr. Mcnair This procedure was performed on Monday, January 13, 2025. My impressions and recommendations are as follows: Impressions : - Three large polyps in the sigmoid colon and in the cecum, removed with a hot snare. Resected and retrieved. Recommendations : - Discharge patient to home. - Resume previous diet. - Continue present medications. - Await pathology results. - Repeat colonoscopy in 3 years for surveillance. My findings are described in the full procedure note, which is enclosed. If I can be of further assistance, please feel free to contact me at Doctor phone number(s): , Work: . Sincerely, Elkin Starks MD 01/13/2025 9:37:54 AM This report has been signed electronically.
--- NOTE | 2025-01-13 09:38 | OP.COLON_ITS ---
Patient Name: Jason Grider Procedure Date: 01/13/2025 9:07 AM Date of : 1970 Age: 54 Procedure: Colonoscopy Indications: Screening for colorectal malignant neoplasm Providers: Elkin Starks MD Referring MD: Shaila Mcnair Medicines: Propofol per Anesthesia Patient Profile: This is a 54 year old male. Refer to note in patient chart for documentation of history and physical. Last Colonoscopy: none. The patient's first colonoscopy is today. Complications: No immediate complications. Estimated blood loss: Minimal. Procedure: Pre-Anesthesia Assessment: - Prior to the procedure, a History and Physical was performed, and patient medications and allergies were reviewed. The patient's tolerance of previous anesthesia was also reviewed. The risks and benefits of the procedure and the sedation options and risks were discussed with the patient. All questions were answered, and informed consent was obtained. Prior Anticoagulants: The patient has taken no anticoagulant or antiplatelet agents. After reviewing the risks and benefits, the patient was deemed in satisfactory condition to undergo the procedure. After I obtained informed consent, the scope was passed under direct vision. Throughout the procedure, the patient's blood pressure, pulse, and oxygen saturations were monitored continuously. The pediatric colonoscope was introduced through the anus and advanced to the cecum, identified by appendiceal orifice and ileocecal valve. The colonoscopy was performed without difficulty. The patient tolerated the procedure well. The quality of the bowel preparation was good. The ileocecal valve, appendiceal orifice, and rectum were photographed. Scope In: 9:18:20 AM Scope Withdrawal Time 0 hours 6 minutes 24 seconds Scope Out: 9:36:24 AM Total Procedure Duration Time 0 hours 18 minutes 4 seconds Findings: Three pedunculated polyps were found in the sigmoid colon and cecum. The polyps were large in size. These polyps were removed with a hot snare. Resection and retrieval were complete. Impression: - Three large polyps in the sigmoid colon and in the cecum, removed with a hot snare. Resected and retrieved. Recommendation: - Discharge patient to home. - Resume previous diet. - Continue present medications. - Await pathology results. - Repeat colonoscopy in 3 years for surveillance. Procedure Code(s): --- Professional --- 40853, 33, Colonoscopy, flexible; with removal of tumor(s), polyp(s), or other lesion(s) by snare technique Diagnosis Code(s): --- Professional --- Z12.11, Encounter for screening for malignant neoplasm of colon D12.5, Benign neoplasm of sigmoid colon D12.0, Benign neoplasm of cecum CPT copyright 2021 [employer]. All rights reserved. The codes documented in this report are preliminary and upon spine specialist review may be revised to meet current compliance requirements. Elkin Starks MD 01/13/2025 9:37:54 AM This report has been signed electronically. Number of Addenda: 0 Note Initiated On: 01/13/2025 9:07 AM
--- NOTE | 2025-01-13 09:38 | OP.COLON_ITS ---
Patient Name: Jason Grider Procedure Date: 01/13/2025 9:07 AM Date of : 1970 Age: 54 Procedure: Colonoscopy Indications: Screening for colorectal malignant neoplasm Providers: Elkin Starks MD Referring MD: Shaila Mcnair Medicines: Propofol per Anesthesia Patient Profile: This is a 54 year old male. Refer to note in patient chart for documentation of history and physical. Last Colonoscopy: none. The patient's first colonoscopy is today. Complications: No immediate complications. Estimated blood loss: Minimal. Procedure: Pre-Anesthesia Assessment: - Prior to the procedure, a History and Physical was performed, and patient medications and allergies were reviewed. The patient's tolerance of previous anesthesia was also reviewed. The risks and benefits of the procedure and the sedation options and risks were discussed with the patient. All questions were answered, and informed consent was obtained. Prior Anticoagulants: The patient has taken no anticoagulant or antiplatelet agents. After reviewing the risks and benefits, the patient was deemed in satisfactory condition to undergo the procedure. After I obtained informed consent, the scope was passed under direct vision. Throughout the procedure, the patient's blood pressure, pulse, and oxygen saturations were monitored continuously. The pediatric colonoscope was introduced through the anus and advanced to the cecum, identified by appendiceal orifice and ileocecal valve. The colonoscopy was performed without difficulty. The patient tolerated the procedure well. The quality of the bowel preparation was good. The ileocecal valve, appendiceal orifice, and rectum were photographed. Scope In: 9:18:20 AM Scope Withdrawal Time 0 hours 6 minutes 24 seconds Scope Out: 9:36:24 AM Total Procedure Duration Time 0 hours 18 minutes 4 seconds Findings: Three pedunculated polyps were found in the sigmoid colon and cecum. The polyps were large in size. These polyps were removed with a hot snare. Resection and retrieval were complete. Impression: - Three large polyps in the sigmoid colon and in the cecum, removed with a hot snare. Resected and retrieved. Recommendation: - Discharge patient to home. - Resume previous diet. - Continue present medications. - Await pathology results. - Repeat colonoscopy in 3 years for surveillance. Procedure Code(s): --- Professional --- 96386, 33, Colonoscopy, flexible; with removal of tumor(s), polyp(s), or other lesion(s) by snare technique Diagnosis Code(s): --- Professional --- Z12.11, Encounter for screening for malignant neoplasm of colon D12.5, Benign neoplasm of sigmoid colon D12.0, Benign neoplasm of cecum CPT copyright 2021 [employer]. All rights reserved. 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 Elkin Starks MD 01/13/2025 9:37:54 AM This report has been signed electronically. Number of Addenda: 0 Note Initiated On: 01/13/2025 9:07 AM
--- NOTE | 2025-01-13 09:38 | OP.CCLET_ITS ---
01/13/2025 Shaila Mcnair [facility] [address] [place] [address] Re : Colonoscopy procedure for Jason Grider Dear Dr. Mcnair This procedure was performed on Monday, January 13, 2025. My impressions and recommendations are as follows: Impressions : - Three large polyps in the sigmoid colon and in the cecum, removed with a hot snare. Resected and retrieved. Recommendations : - Discharge patient to home. - Resume previous diet. - Continue present medications. - Await pathology results. - Repeat colonoscopy in 3 years for surveillance. My findings are described in the full procedure note, which is enclosed. If I can be of further assistance, please feel free to contact me at Doctor phone number(s): , Work: . Sincerely, Elkin Starks MD 01/13/2025 9:37:54 AM This report has been signed electronically.
--- NOTE | 2025-01-13 09:46 | PCM.POST.ANE ---
Anesthesia: Postop Eval I Current Vital Signs Temperature: 97.2 F Pulse Rate: 62 Blood Pressure: 113/94 Respiratory Rate: 16 Pulse Ox: 96 Oxygen Delivery Method: Room Air Assessment Airway patent: Yes Spontaneous unlabored respirations: Yes Mental status: Awake nausea: No Vomiting: No Anesthesia Complication: No Fluid Hydration Crystalloid volume administer (ml): 400 Total IV fluid infused: 400 Progress Note Anesthesia document: Postop Eval 1 completed: Yes
--- NOTE | 2025-01-13 10:18 | PCM.POSTANE2 ---
Anesthesia Postop Eval I Sum Postop Eval Completion status Anesthesia document: Postop Eval 1 completed: Yes Anesthesia Postop Eval I Summary Anesthesia Postop Eval I Summary: Anesthesia Postop Eval I: Assessment Summary Airway patent Yes 01/13/25 09:47 [email or web address] Spontaneous unlabored Yes 01/13/25 09:47 [email or web address] respirations Mental status Awake 01/13/25 09:47 [email or web address] nausea No 01/13/25 09:47 [email or web address] Vomiting No 01/13/25 09:47 [email or web address] Anesthesia Postop Eval I: Fluid Summary Crystalloid volume administer 400 01/13/25 09:47 [email or web address] (ml) Colloids volume administered ( ml) Blood Product volume administered (ml) Total IV fluid infused 400 01/13/25 09:47 [email or web address] Anesthesia Postop Eval I: Summary Notes Anesthesia Complication No 01/13/25 09:47 [email or web address] Anesthesia Complication Comment: Post-operative progress note Anesthesia: Postop Eval II Evaluation Mental status: Awake and Calm Pain Level: 0 nausea: No Vomiting: No Complications Anesthesia Complication: No
== END 2025-01-13 10:18 | disposition home or self-care (01) ==
LOC: EN 08:00 → AC 08:01
PROVIDERS: PCP Internal Medicine; Referring Provider Internal Medicine; Visit Provider Surgery
PROC: 0DJD8ZZ Inspection of Lower Intestinal Tract, Via Natural or Artificial Opening Endoscopic (ICD-10-PCS; CPT 45378; principal; 2025-01-13 08:55)
DX: Z12.11 Encounter for screening for malignant neoplasm of colon (principal); D12.0 Benign neoplasm of cecum; I10 Essential (primary) hypertension; D12.5 Benign neoplasm of sigmoid colon; J45.909 Unspecified asthma, uncomplicated; Z79.899 Other long term (current) drug therapy
CPT/HCPCS: 45385; 88305; J2405